=== PATIENT | male | born 1950 | race African-American/Black ===

== ENCOUNTER 2022-03-26 12:44 | Inpatient (IN) | payer MEDICARE, OTHER ==
[~2022-03-26] VITALS: Ht 165.1 cm; Wt 80.3 kg
[2022-03-26] MEDS ORDERED: AMLO-213 PO (12:59)
[2022-03-26] MEDS ORDERED: NA P133E RC (12:59)
[2022-03-26] MEDS ORDERED: CALC1TAB30 PO (12:59)
[2022-03-26] MEDS ORDERED: SENN-261 PO (12:59)
[2022-03-26] MEDS ORDERED: LORA-259 PO (12:59)
[2022-03-26] MEDS ORDERED: TRAM50TA2 PO (12:59)
[2022-03-26] MEDS ORDERED: DIVA250T4 PO (12:59)
[2022-03-26] MEDS ORDERED: ACET-2605 PO (12:59)
[2022-03-26] MEDS ORDERED: MAGN400O6 PO (12:59)
[2022-03-26] MEDS ORDERED: DOCU-141 PO (12:59)
[2022-03-26] MEDS ORDERED: BENZ1TAB7 PO (12:59)
[2022-03-26] MEDS ORDERED: RISP0.2515 PO (12:59)
[2022-03-26] MEDS ORDERED: ACET-868 PO (12:59)
[2022-03-26] MEDS ORDERED: BISA10SU11 RC (12:59)
[2022-03-26] MEDS ORDERED: IV NS 0.9% 1,000 ML BAG IV ONE (13:00)
[2022-03-26] MEDS ORDERED: PIPERACILLIN /TAZOBACTAM 3.375 G in IV D5W 50 ML IV ONE (13:00)
[2022-03-26] MEDS ORDERED: ACETAMINOPHEN ES 500 MG TABLET PO ONE (13:00)
[2022-03-26] MEDS ORDERED: VANCOMYCIN 1 GM in IV D5W 250 ML IV ONE (13:00)
--- NOTE | 2022-03-26 13:04 | NUR ---
TECH AT BEDSIDE FOR EKG
--- NOTE | 2022-03-26 13:05 | NUR ---
MOVE SHEET SUBMITTED.
--- NOTE | 2022-03-26 13:05 | NUR ---
BIB [facility] FROM [facility] DUE TO FEVER AND O2SAT IN THE LOW 80'S ON ROOM AIR TACHY A/O X2 ABLE TO MAKE NEEDS KNOWN. IV LAC PRESENT ON ARRIVAL
--- NOTE | 2022-03-26 13:06 | NUR ---
PHLEB AT BEDSIDE FOR BLOOD DRAW
--- NOTE | 2022-03-26 13:06 | NUR ---
COVID SWAB COLLECTED AND SENT TO LAB
[2022-03-26] MEDS ORDERED: ACETAMINOPHEN ES 500 MG TABLET ONE (13:27)
[2022-03-26 13:54] LABS: BASOPHILS % (AUTO) 0.3 % (0.0-2.0); EOSINOPHILS % (AUTO) 0.2 % (0.0-6.0); HEMATOCRIT 41 % (39-51); HEMOGLOBIN 13.7 g/dL (13.5-17.5); LYMPHOCYTES # (AUTO) 0.7 K/uL (0.8-4.8); LYMPHOCYTES % (AUTO) 6.7 % (20.0-44.0); MEAN CORPUSCULAR HGB CONC 33 g/dl (31.0-36.0); MEAN CORPUSCULAR VOLUME 88 fL (80-96); MONOCYTES # (AUTO) 1.1 K/uL (0.1-1.30); MONOCYTES % (AUTO) 10.3 % (2.0-12.0); NEUTROPHILS # (AUTO) 8.7 K/uL (1.8-8.9); NEUTROPHILS % (AUTO) 82.5 % (43.0-81.0); PLATELET COUNT (AUTO) 209 K/uL (150-450); RED BLOOD CELL COUNT(AUTO) 4.68 MIL/uL (4.5-6.0); WHITE BLOOD COUNT (AUTO) 10.5 K/uL (4.3-11.0)
[2022-03-26 14:05] LABS: ALANINE AMINOTRANSFERASE 15 U/L (12-78); ALBUMIN 2.1 g/dL (3.4-5.0); ALKALINE PHOSPHATASE 84 U/L (46-116); ASPARTATE AMINOTRANSFERASE 28 U/L (15-37); BILIRUBIN,DIRECT 0.3 mg/dL (0.0-0.2); BILIRUBIN,TOTAL 0.6 mg/dL (0.2-1.0); CALCIUM, SERUM 10.5 mg/dL (8.5-10.1); CARBON DIOXIDE 30 mmol/L (21-32); CHLORIDE 102 mmol/L (98-107); CREATININE 1.2 mg/dL (0.6-1.3); GLUCOSE 164 mg/dL (74-106); POTASSIUM 4.2 mmol/L (3.5-5.1); SODIUM SERUM 140 mmol/L (136-145); TOTAL PROTEIN, SERUM 9.1 g/dL (6.4-8.2); UREA NITROGEN, BLOOD 22 mg/dL (7-18)
[2022-03-26] MEDS ORDERED: MAG HYDROX/AL HYDROX/SIMETH 30 ML UDC PO PRN (14:30)
[2022-03-26] MEDS ORDERED: MAGNESIUM HYDROXIDE 30 ML UDC PO PRN ×2 (14:30)
[2022-03-26] MEDS ORDERED: ONDANSETRON HCL/PF 4 MG/2 ML VIAL IVP PRN (14:30)
[2022-03-26] MEDS ORDERED: ZOLPIDEM TARTRATE 5 MG TABLET PO PRN (14:30)
[2022-03-26] MEDS ORDERED: BISACODYL SUPP (10 MG) 10 MG/SUPP.RECT SUPP.RECT RC PRN (14:30)
[2022-03-26] MEDS ORDERED: ACETAMINOPHEN ES 500 MG TABLET PO PRN (14:30)
[2022-03-26] MEDS ORDERED: Z GUARD REMEDY 4 OZ OINT TP PRN (14:30)
[2022-03-26] MEDS ORDERED: ACETAMINOPHEN 325 MG TABLET PO PRN (14:30)
[2022-03-26] MEDS ORDERED: NA PHOS,M-B/NA PHOS,DI-BA 1 EA ENEMA RC PRN (14:30)
--- NOTE | 2022-03-26 15:15 | NUR ---
APOLINAR, MECHANICAL UNIT REPAIRER WITH NEW ORDER FOR MIDLINE. PRIMARY RN AWARE AND ZOHRA, NURSING AUTOMOBILE BODY REPAIR SUPERVISOR MADE AWARE.
--- NOTE | 2022-03-26 15:38 | NUR ---
GOT BED 322-1
--- NOTE | 2022-03-26 16:10 | NUR ---
report given to gisele for IGNACIO
--- NOTE | 2022-03-26 17:05 | NUR ---
pt transferred to 322 via lalo cardoza protocol. warm handoff given to rn assigned.
[2022-03-26] MEDS: risperiDONE 0.25 MG TABLET PO SCH (17:42)
[2022-03-26] MEDS: DOCUSATE SODIUM 100 MG CAPSULE PO SCH (17:43)
[2022-03-26] MEDS: DIVALPROEX SODIUM 250 MG TABLET.DR PO SCH (17:43)
[2022-03-26] MEDS: BENZTROPINE MESYLATE (1 MG) 1 MG TABLET PO SCH (17:43)
[2022-03-26] MEDS: CALCIUM CARB 250MG /VITAMIN D 1 UDTAB PO SCH (17:43)
[2022-03-26 17:53] VITALS: BP 101/55
[2022-03-26] MEDS: PIPERACILLIN /TAZOBACTAM 3.375 G in IV D5W 50 ML IV SCH ×2 (17:55→23:19)
[2022-03-26] MEDS: IV NS 0.9% 1,000 ML IV PRN (17:56)
--- NOTE | 2022-03-26 18:00 | NUR ---
RN ADMITTING NOTES PATIENT ARRIVED TO UNIT VIA GURNEY @1700, ACCOMPANIED BY TWO ER STAFF. PATIENT ON 3L OF O2 VIA NC. NO S/S OF RESPIRATORY DISTRESS. PATIENT HAS THREE IV ACCESS: R UA #18 RUNNING NS @125 ML/HR, R FA #20 SL, AND L AC #18 SL. INTACT AND PATENT. PATIENT IS A/Ox1-2, ABLE TO MAKE NEEDS KNOWN. PATIENT IS INCONTINENT, USES DIAPER. ORIENTED TO ROOM, CALL LIGHT, AND STAFF. TELE MONITORING ATTACHED: SHOWING SR HR 75. FULL BODY ASSESSMENT COMPLETED: CARDIAC WNL, RESPIRATORY L LOWER LOBE DIMINISHED, GI/ WNL, SKIN: SACRAL SCARING, ABDOMINAL SCARRING, L LEG SCARRING. SAFETY MEASURES IN PLACE: CALL LIGHT WITHIN REACH, HOB ELEVATED, SIDE RAILS UPx 2, BED LOCKED AND IN LOWEST POSITION, BED ALARM ON. WILL CONTINUE TO MONITOR.
--- NOTE | 2022-03-26 19:45 | NUR ---
RN NOTES CONTINUING CARE INTO SUPERVISOR WATERPROOFING
[2022-03-26 20:00] VITALS: BP 77/49
[2022-03-26] MEDS: LORAZEPAM 1 MG TABLET PO SCH (21:12)
[2022-03-26] MEDS: SENNOSIDES 8.6 MG TABLET PO SCH (21:12)
[2022-03-27] VITALS: BP_SYST 100; BP_SYST 99; BP_DIAS 73; BP_DIAS 78
[2022-03-27] MEDS: VANCOMYCIN 0.75 GM in IV D5W 250 ML IV SCH ×2 (01:45→14:17)
[2022-03-27] MEDS: IV NS 0.9% 1,000 ML IV PRN ×3 (03:38→17:10)
[2022-03-27 04:00] VITALS: BP 143/82
[2022-03-27] MEDS: PIPERACILLIN /TAZOBACTAM 3.375 G in IV D5W 50 ML IV SCH ×3 (05:01→18:19)
--- NOTE | 2022-03-27 06:52 | NUR ---
TRIAL LAWYER CLOSING NOTES PATIENT LYING IN BED, AWAKE AOx2, ABLE TO MAKE NEEDS KNOWN. ON NC 3LPM AND TOLERATING WELL. NO SOB NOTED. NO S/SX OF RESPIRATORY DISTRESS NOTED. TELE MONITOR SHOWING SINUS MERON/SINUS RHYTHM HR 55. IV ACCESS IN L AC#18 SL, R FA#20 SL, R UA#18 RUNNING NS @125 ML/HR. IV IS INTACT, PATENT, AND FLUSHING WELL. SAFETY PRECAUTIONS IN PLACE: BED IN LOWEST, LOCKED POSITION, SIDE RAILS UPx2, AND BRAKES ON. TABLE AND CALL LIGHT WITHIN REACH. WILL ENDORSE TO NEXT SHIFT ANY IGNACIO.
--- NOTE | 2022-03-27 07:35 | NUR ---
BUSINESS PROJECT MANAGER OPENING NOTES RECEIVED PT LYING IN BED, AWAKE AOx1-2, EPISODES OF CONFUSION, ABLE TO MAKE NEEDS KNOWN. ON NC 3LPM AND TOLERATING WELL AT 97%. NO SOB NOTED, BREATHING EVEN AND UNLABORED. NO S/SX OF RESPIRATORY DISTRESS NOTED. TELE MONITOR SHOWING SINUS MERON/SINUS RHYTHM AT 50 BPM. IV ACCESSES NOTED IN LAC G#18 (SL), RFA G#20 (SL), ARISTEO G#18 RUNNING NS @125 ML/HR. ALL IV ACCESSES INTACT, PATENT, AND FLUSHING WELL. SAFETY PRECAUTIONS IN PLACE: BED IN LOWEST, LOCKED POSITION, SIDE RAILS UPx3, AND BRAKES ON, TRAY TABLE AND CALL LIGHT WITHIN REACH. WILL CONTINUE TO MONITOR DURING MY SHIFT.
[2022-03-27 07:50] LABS: BASOPHILS % (AUTO) 0.3 % (0.0-2.0); EOSINOPHILS % (AUTO) 3.1 % (0.0-6.0); HEMATOCRIT 35 % (39-51); HEMOGLOBIN 11.4 g/dL (13.5-17.5); LYMPHOCYTES # (AUTO) 1.6 K/uL (0.8-4.8); LYMPHOCYTES % (AUTO) 22.3 % (20.0-44.0); MEAN CORPUSCULAR HGB CONC 32 g/dl (31.0-36.0); MEAN CORPUSCULAR VOLUME 88 fL (80-96); MONOCYTES # (AUTO) 1.1 K/uL (0.1-1.30); NEUTROPHILS # (AUTO) 4.3 K/uL (1.8-8.9); NEUTROPHILS % (AUTO) 59.3 % (43.0-81.0); PLATELET COUNT (AUTO) 155 K/uL (150-450); RED BLOOD CELL COUNT(AUTO) 3.99 MIL/uL (4.5-6.0); WHITE BLOOD COUNT (AUTO) 7.3 K/uL (4.3-11.0)
[2022-03-27 08:01] LABS: CARBON DIOXIDE 27 mmol/L (21-32); CHLORIDE 105 mmol/L (98-107); CREATININE 0.8 mg/dL (0.6-1.3); GLUCOSE 100 mg/dL (74-106); PHOSPHORUS 3.5 mg/dL (2.5-4.9); POTASSIUM 3.8 mmol/L (3.5-5.1); SODIUM SERUM 140 mmol/L (136-145); UREA NITROGEN, BLOOD 18 mg/dL (7-18)
[2022-03-27] MEDS: LORAZEPAM 1 MG TABLET PO SCH ×2 (08:33→21:54)
[2022-03-27] MEDS: DIVALPROEX SODIUM 250 MG TABLET.DR PO SCH ×2 (08:33→17:33)
[2022-03-27] MEDS: risperiDONE 0.25 MG TABLET PO SCH ×2 (08:33→17:44)
[2022-03-27] MEDS: BENZTROPINE MESYLATE (1 MG) 1 MG TABLET PO SCH ×2 (08:33→17:34)
[2022-03-27] MEDS: DOCUSATE SODIUM 100 MG CAPSULE PO SCH ×2 (08:34→17:33)
[2022-03-27] MEDS: CALCIUM CARB 250MG /VITAMIN D 1 UDTAB PO SCH (08:34)
[2022-03-27] MEDS ORDERED: AMLODIPINE BESYLATE 10 MG TABLET PO SCH (09:00)
[2022-03-27] MEDS ORDERED: MIDODRINE HCL (5MG) 5 MG TABLET PO PRN (11:00)
[2022-03-27] MEDS ORDERED: IOHEXOL-300 100 ML VIAL IV ONE (11:13)
[2022-03-27] MEDS ORDERED: IV NS 0.9% 250 ML IV ONE (11:13)
--- NOTE | 2022-03-27 11:50 | NUR ---
RN NOTES - PT IS BACK FROM CT
--- NOTE | 2022-03-27 13:20 | NUR ---
RN NOTES - LAB RESULTS LAB CALLED TO REPORT GRAM POSITIVE COCCI IN CHAINS SEEN ON GRAM STAIN AEROBIC - MD MADE AWARE.
[2022-03-27] MEDS ORDERED: LORAZEPAM INJ 2 MG/ML VIAL IV PRN (15:00)
[2022-03-27] MEDS ORDERED: Z GUARD REMEDY 4 OZ OINT TP SCH (15:30)
[2022-03-27 15:49] LABS: D-DIMER 8.63 mg/L(FEU (0.17-0.50)
--- NOTE | 2022-03-27 16:30 | NUR ---
RN NOTES DR LIN HAS BEEN MADE AWARE THAT THE PT REGISTERED WITH HR OF OVER 130S, MD ORDERED EKG STAT- RESULTED ATRIAL FLUTTER, ORDERED AMIODARONE BOLUS AND DRIP, [facility] HAS BEEN NOTIFIED FOR A TRANSFER. RECOMMENDED CARDIO CONSULT -DR LANZA MADE AWARE.
--- NOTE | 2022-03-27 16:55 | NUR ---
RN NOTES TRANSFERRED PATIENT TO [facility] AND WAS RECEIVED BY TYLER ORNELAS. PATIENT WAS SAFELY TRANSFERRED VIA HIS OWN BED, ON 3LPM VIA NC, TELEMONITORING REPORTS SR 130S BPM, EKG SHOWS ATRIAL FLUTTER. CALLED THE PHARMACY TO SEND AMIODARONE TO THE [facility]. ALL BELONGINGS CHART, AND MEDICATIONS ENDORSED. MD AND CHARGE NURSE AWARE OF THE TRANSFER.
[2022-03-27] MEDS ORDERED: AMIODARONE 150 MG in IV D5W 100 ML IV ONE (17:00)
[2022-03-27] MEDS ORDERED: AMIODARONE 450 MG in IV D5W 241 ML IV PRN (17:00)
--- NOTE | 2022-03-27 17:00 | NUR ---
james rn note received patient from from med/surg with dx sepsis and a flutter on tele monitor patient alert with confusion,unable to answer any questions, on 3 l nac of o2 saturation 97%, placed on tele monitor st \aflutter hr 145 , at this time, lt ac hl and rt upper arm [place] [id number] at this time i, Tylenol po given coolimg measure provided , bed in lowest and locked position. call light within reach with safety measures implemented. All needs were attended for the moment., on ivf as ordered , will monitor Contacted pharmacy for the antibiotic
[2022-03-27] MEDS: ACETAMINOPHEN 325 MG TABLET PO PRN (17:02)
[2022-03-27 17:06] LABS: THYROID STIMULATING HORMONE 2.432 uIU/mL (0.358-3.74)
--- NOTE | 2022-03-27 19:27 | NUR ---
[facility] RN NOTE VENOUS DOPPLEX DONE NEGATIVE FOR DVT PER TECH , AND LEFT A MESSAGE TO ELDA FAMILY MEMBER TO GET CONSENT FOR MRI AND CT SCAN WILL ENDORSE TO RN NEXT SHIFT SINGH
[2022-03-27 20:00] VITALS: BP 94/54
[2022-03-27] MEDS: SENNOSIDES 8.6 MG TABLET PO SCH (21:53)
--- NOTE | 2022-03-27 22:52 | NUR ---
RN NOTES: PT IS ON AMIO DRIP. HR CONVERTED TO SINUS RHYTHM TO SINUS MERON [address] ROBBINS. ORDER TO STOP THE AMIO DRIP. NOTED AND CARRIED OUT.
[2022-03-28] VITALS: BP 99/73
[2022-03-28] MEDS: PIPERACILLIN /TAZOBACTAM 3.375 G in IV D5W 50 ML IV SCH ×4 (00:19→17:35)
[2022-03-28] MEDS: VANCOMYCIN 0.75 GM in IV D5W 250 ML IV SCH (01:06)
[2022-03-28] MEDS: IV NS 0.9% 1,000 ML IV PRN (03:42)
[2022-03-28 04:00] VITALS: BP 97/61
--- NOTE | 2022-03-28 04:37 | NUR ---
RN NOTES: CALLED DAUGHTER ELDA TO OBTAIN CONSENT FOR MRI AND CT SCAN. DIDN'T ANSWER. LEFT MESSAGE.
--- NOTE | 2022-03-28 06:30 | NUR ---
RN CLOSING NOTES: PT IN BED, SLEEPING BUT EASILY AROUSABLE, ALERT/ORIENTED X2 AND VERBALLY RESPONSIVE WITH CONFUSION. ON O2 AT 3L/MIN VIA N/C AND PT TOLERATED WELL. O2 SAT 99%. IV ACCESSES ON LAC#18 G, RFA#20G, ARISTEO#18G INTACT AND PATENT. NO S/S OF INFILTRATIONS. RUNNING NS AT 125CC/HR. NO C/O PAIN OR DISCOMFORT. NO ACUTE DISTRESS. PT REMAIN NPO AFTER MIDNIGHT FOR MRI AND CT SCAN W/ CONTRAST. ALL DUE MEDS GIVEN ORDERED. SAFETY MEASURES IN PLACE. SIDE RAILS UP X3, BED IN LOWEST POSITION AND LOCKED. PLACE CALL LIGHT WITH IN REACH. WILL ENDORSE TO MORNING SHIFT NURSE.
[2022-03-28 07:09] LABS: ALANINE AMINOTRANSFERASE 8 U/L (12-78); ALBUMIN 1.6 g/dL (3.4-5.0); ALKALINE PHOSPHATASE 64 U/L (46-116); ASPARTATE AMINOTRANSFERASE 21 U/L (15-37); BILIRUBIN,TOTAL 0.5 mg/dL (0.2-1.0); CALCIUM, SERUM 8.9 mg/dL (8.5-10.1); CARBON DIOXIDE 30 mmol/L (21-32); CHLORIDE 106 mmol/L (98-107); CREATININE 0.9 mg/dL (0.6-1.3); GLUCOSE 104 mg/dL (74-106); POTASSIUM 3.8 mmol/L (3.5-5.1); SODIUM SERUM 137 mmol/L (136-145); UREA NITROGEN, BLOOD 12 mg/dL (7-18)
[2022-03-28 08:00] VITALS: BP 119/85
--- NOTE | 2022-03-28 08:02 | NUR ---
RN OPEN NOTES: PT IN BED, SLEEPING , ALERT/ORIENTED X2 AND VERBALLY RESPONSIVE OCCASIONALLY CONFUSION. ON O2 AT 3L/MIN VIA N/C AND PT TOLERATED WELL. O2 SAT 99%. IV ACCESSES ON LAC#18 G, RFA#20G, ARISTEO#18G INTACT AND PATENT. NO S/S OF INFILTRATIONS. RUNNING NS AT 125CC/HR. NO C/O PAIN OR DISCOMFORT. NO ACUTE DISTRESS. SAFETY MEASURES IN PLACE. SIDE RAILS UP X3, BED IN LOWEST POSITION AND LOCKED. PLACE CALL LIGHT WITH IN REACH. WILL CONTINUE TO MONITOR AND FALLOW POC
[2022-03-28] MEDS: LORAZEPAM 1 MG TABLET PO SCH ×2 (08:45→22:54)
[2022-03-28] MEDS: BENZTROPINE MESYLATE (1 MG) 1 MG TABLET PO SCH ×2 (08:45→17:11)
[2022-03-28] MEDS: risperiDONE 0.25 MG TABLET PO SCH ×2 (08:45→17:11)
[2022-03-28] MEDS: DOCUSATE SODIUM 100 MG CAPSULE PO SCH ×2 (08:45→17:11)
[2022-03-28] MEDS: DIVALPROEX SODIUM 250 MG TABLET.DR PO SCH ×2 (08:46→17:11)
[2022-03-28 11:07] LABS: *SPE A/G RATIO 0.4 (0.7-1.7); *SPE ALPHA-1-GLOBULIN 0.4 g/dL (0.0-0.4); *SPE ALPHA-2-GLOBULIN 0.9 g/dL (0.4-1.0); *SPE BETA GLOBULIN 1.1 g/dL (0.7-1.3); *SPE M-SPIKE Not Observed g/dL (Not Observed); IMMUNOGLOBULIN A, SERUM 350 mg/dL (61-437); IMMUNOGLOBULIN G, SERUM 2782 mg/dL (603-1613); IMMUNOGLOBULIN M, SERUM 233 mg/dL (15-143)
[2022-03-28 12:20] VITALS: BP 90/63
[2022-03-28] MEDS: VANCOMYCIN 1 GM in IV D5W 250ml IV SCH (15:03)
[2022-03-28] MEDS ORDERED: IV NS 0.9% 250 ML IV ONE (15:21)
[2022-03-28] MEDS ORDERED: IOHEXOL-350 100 ML VIAL IV ONE (15:21)
--- NOTE | 2022-03-28 15:32 | NUR ---
RN NOTE PATIENT WAS TAKEN TO THE CTB SCAN OF THE CHEST AND abdomen
[2022-03-28 17:01] VITALS: BP 110/64
--- NOTE | 2022-03-28 19:00 | NUR ---
RN CLOSING NOTES: PT IN BED, ALERT/ORIENTED X2 AND VERBALLY RESPONSIVE WITH CONFUSION. ON O2 AT 5L/MIN VIA N/C AND PT TOLERATED WELL. O2 SAT 99%. IV ACCESSES ON LAC#18 G, RFA#20G, ARISTEO#18G INTACT AND PATENT. NO S/S OF INFILTRATIONS. NO C/O PAIN OR DISCOMFORT. NO ACUTE DISTRESS. PT WILL BE NPO AFTER MIDNIGHT FOR MRI W/ CONTRAST. ALL DUE MEDS GIVEN ORDERED. SAFETY MEASURES IN PLACE. SIDE RAILS UP X3, BED IN LOWEST POSITION AND LOCKED. PLACE CALL LIGHT WITH IN REACH. WILL ENDORSE TO MORNING SHIFT NURSE.
[2022-03-28 20:00] VITALS: BP 110/58
[2022-03-28] MEDS: SENNOSIDES 8.6 MG TABLET PO SCH (22:55)
[2022-03-29] VITALS: BP 118/84
[2022-03-29] MEDS: ACETAMINOPHEN 325 MG TABLET PO PRN (01:44)
[2022-03-29] MEDS: PIPERACILLIN /TAZOBACTAM 3.375 G in IV D5W 50 ML IV SCH ×4 (01:45→18:41)
[2022-03-29 04:00] VITALS: BP 98/63
[2022-03-29] MEDS: VANCOMYCIN 1 GM in IV D5W 250ml IV SCH (04:31)
--- NOTE | 2022-03-29 06:58 | NUR ---
SQL SERVER BI DEVELOPER CLOSING NOTE PT REMAINS IN BED, AWAKE, A&O X1, CALM, COOPERATIVE. PT ON 4L NC WITH O2SAT RANGING FROM 94%-100%; NO S/S OF RESP DISTRESS, NO SOB OR COUGH, NON-LABORED AND EQUAL BREATHING. PT ATTACHED TO EXTERNAL MONITOR SB-SR WITH HR RANGING FROM 57-76. IV ACCESS ,ON LAC 18G, RFA 20G, AND ARISTEO 18G; INTACT AND PATENT; NS TKO A 10 ML/HR. ALL DUE MEDS ADMINISTERED DURING THE NIGHT. BED IN LOWEST POSITION, CALL LIGHT WITHIN REACH, SIDE RAILS UP X3. WILL ENDORSE TO DAYSHIFT NURSE TO CONTINUE CARE.
[2022-03-29 07:19] LABS: CALCIUM, SERUM 9.1 mg/dL (8.5-10.1); CREATININE 0.9 mg/dL (0.6-1.3); POTASSIUM 3.6 mmol/L (3.5-5.1)
[2022-03-29 08:00] VITALS: BP 95/67
--- NOTE | 2022-03-29 08:14 | NUR ---
RN NOTE PT RECEIVED ASLEEP IN BED, RESPONSIVE TO STIMULI. RECEIVING O2 @ 4L VIA NASAL CANULA. PT IN NPO EXCEPT MEDS. WITH IV ACCESS ON LAC G18, RFA G20, ARISTEO G18. SAFETY MEASURES FOLLOWED. WILL CONTINUE TO MONITOR.
[2022-03-29] MEDS: BENZTROPINE MESYLATE (1 MG) 1 MG TABLET PO SCH ×2 (08:26→16:13)
[2022-03-29] MEDS: LORAZEPAM 1 MG TABLET PO SCH ×2 (08:26→21:16)
[2022-03-29] MEDS: DIVALPROEX SODIUM 250 MG TABLET.DR PO SCH (08:26)
[2022-03-29] MEDS: DOCUSATE SODIUM 100 MG CAPSULE PO SCH ×2 (08:26→16:14)
[2022-03-29] MEDS: risperiDONE 0.25 MG TABLET PO SCH ×2 (08:26→16:14)
--- NOTE | 2022-03-29 10:20 | NUR ---
Responsible Republican: KHAI called [facility] [phone] where pt. resides and spoke to Adela SCOTT regarding responsible republican for pt., per Adela the only point of contact/NEXT OF KIN they have is the pt.'s sister, Adela Freitas [phone]. Per Adela the pt. has always been alert & Oriented and made his own medical decisions. Per Adela, the pt. has no children or spouse and they notified Christelle that pt. was transferred to [facility]. KHAI called Adela x 2 separate times and left a voicemail. KHAI will continue efforts to contact Christelle and clarify relationship. KHAI notified the pt.'s RNHerve.
[2022-03-29 12:00] VITALS: BP 98/62
--- NOTE | 2022-03-29 12:45 | NUR ---
RN NOTE SPOKE WITH MRI STAFF, PT DOES NOT NEED TO BE NPO FOR PROCEDURE. PMD MADE AWARE, T.O RESUME DIET.
--- NOTE | 2022-03-29 14:21 | NUR ---
RN NOTE PT TAKEN TO MRI. IN STABLE CONDITION. NOT IN RESPI DISTRESS. WITH O2 ON @4L VIA NC.
[2022-03-29 16:00] VITALS: BP 91/56
[2022-03-29] MEDS: DIVALPROEX SODIUM 125 MG CAP.SPRINK PO SCH (16:13)
--- NOTE | 2022-03-29 19:12 | NUR ---
RN NOTE PT RECEIVED ASLEEP IN BED, RESPONSIVE TO STIMULI. RECEIVING O2 @ 4L VIA NASAL CANULA. PT IN NPO EXCEPT MEDS POST MIDNIGHT FOR CT BIOPSY NEEDLE IN AM. WITH IV ACCESS ON RAC G20 IN PLACE AND PATENT,DUE MEDICATIONS GIVEN. AM/PM CARE RENDERED. SAFETY MEASURES FOLLOWED. WILL CONTINUE TO MONITOR.
--- NOTE | 2022-03-29 19:30 | NUR ---
PT SITTING IN BED, AWAKE EATING DINNER, ALERT/ORIENTED X2 AND VERBALLY RESPONSIVE OCCASIONALLY CONFUSED. ON O2 AT 4L/MIN VIA N/C AND PT TOLERATING WELL. IV ACCESS ON RAC G#20. NO C/O PAIN OR DISCOMFORT. NOT IN ACUTE DISTRESS. SAFETY MEASURES IN PLACE. SIDE RAILS UP X3, BED LOCKED AND IN LOWEST POSITION. PLACED CALL LIGHT WITH IN REACH. BED ALARM ON, WILL CONTINUE TO MONITOR AND FOLLOW PLAN OF CARE.
[2022-03-29 20:00] VITALS: BP 110/63
[2022-03-29] MEDS: SENNOSIDES 8.6 MG TABLET PO SCH (21:16)
[2022-03-29] MEDS: CEFTRIAXONE 2 G in IV D5W 100 ML IV SCH (21:17)
[2022-03-30] VITALS (7 sets, daily range): BP systolic 90–124; BP diastolic 56–74
--- NOTE | 2022-03-30 07:02 | NUR ---
PT ASLEEP IN BED, ALERT/ORIENTED X2 AND VERBALLY RESPONSIVE OCCASIONALLY CONFUSED. ON O2 AT 4L/MIN VIA N/C AND PT TOLERATING WELL. IV ACCESS ON RAC G#20. NO C/O PAIN OR DISCOMFORT. NOT IN ACUTE DISTRESS. SAFETY MEASURES IN PLACE. SIDE RAILS UP X3, BED LOCKED AND IN LOWEST POSITION. PLACED CALL LIGHT WITH IN REACH. BED ALARM ON, WILL ENDORSE TO NEXT NURSE ON DUTY FOR CONTINUITY OF CARE.
[2022-03-30 07:11] LABS: CALCIUM, SERUM 9.1 mg/dL (8.5-10.1); CREATININE 0.8 mg/dL (0.6-1.3); POTASSIUM 3.8 mmol/L (3.5-5.1)
[2022-03-30] MEDS ORDERED: MIDODRINE HCL (5MG) 5 MG TABLET PO PRN (08:00)
--- NOTE | 2022-03-30 08:00 | NUR ---
RN NOTES RECEIVED PATIENT IN THE BED A/O X2, TOTAL CARE, REFUSED PAIN. PATIENT ON O2-4LNC NO ACUTE RESPIRATORY DISTRESS. PATIENT ORTHOTICS PROSTHETICS ASSISTANT AND SCHEDULED CT GUIDED LUNG BIOPSY TIODAY, ACLLED SISTER, AND UNABLE TO REACH, LEFT MASSAGE.
--- NOTE | 2022-03-30 10:00 | NUR ---
RN NOTES' GET CALL FROM RADIOLOGISTS RENE HANNA, AND NOTIFIED TODAY UNABLE TO BE DONE CT GUIDED BIOPSY, BECAUSE NO PATHOLOGY ON SATURDAY, WILL BE RESCHEDULED DURING A WEEK. NOTIFIED Dr WATSON.
[2022-03-30] MEDS: DIVALPROEX SODIUM 125 MG CAP.SPRINK PO SCH ×2 (10:44→17:36)
[2022-03-30] MEDS: risperiDONE 0.25 MG TABLET PO SCH ×2 (10:44→17:36)
[2022-03-30] MEDS: BENZTROPINE MESYLATE (1 MG) 1 MG TABLET PO SCH ×2 (10:44→17:36)
[2022-03-30] MEDS: LORAZEPAM 1 MG TABLET PO SCH ×2 (10:45→21:32)
[2022-03-30] MEDS: DOCUSATE SODIUM 100 MG CAPSULE PO SCH ×2 (10:45→17:36)
[2022-03-30] MEDS ORDERED: GADOTERATE MEGLUMINE 5 MMOL/10 ML VIAL IV ONE (12:07)
--- NOTE | 2022-03-30 13:00 | NUR ---
RN NOTES PATIENT TOLERATED LUNCH 100% WITH ASSIST, DUE MEDICATION ADMINISTERED, REFUSED PAIN.
--- NOTE | 2022-03-30 15:08 | NUR ---
PATHOLOGY WAS NOT AVAILABLE, BIOPSIES NEED TO BE DONE BEFORE 12P / PATHOLOGY. SO SPECIMEN DOESNT SIT OVER WEEKEND
--- NOTE | 2022-03-30 18:30 | NUR ---
RN NOTES PM CARE DONE, PATIENT AWAKE, NO ACUTE RESPIRATORY DISTRESS, DUE MEDICATION ADMINISTERED, ASSIST TURN AND REPOSTION Q 2 HR. ENDORSED ONCOMING NURSE ABOUT CT GUIDED KELVIN BIOPSY TO FOLLOW UP, AND GET CONSENT FORM SIGN VIA PATIENTS SISTER.
--- NOTE | 2022-03-30 19:05 | NUR ---
RN NOTES RECEIVED PT FOR CONTINUITY OF CARE. PATIENT A/OX1-2 IN NO S/SX OF ACUTE DISTRESS AT THIS TIME; CURRENTLY ON 4L OF O2 VIA NC; WITH 02 SAT >95% AT THIS TIME.WITH IV ACCESS ON R AC#20. PATENT, INTACT AND FLUSHING WELL. . ON PUREED DIET. WILL ENSURE SAFETY MEASURES WITHIN THE SHIFT. PATIENT BED ALARM IS ON. HEAD OF BED ELEVATED. BED IS LOCKED, IN LOWEST POSITION AND SIDE RAILS UP. CALL LIGHT WITHIN REACH OF THE PATIENT. WILL CONTINUE TO MONITOR AND REASSESS FOR ANY CHANGES AND WILL CARRY OUT ANY ONGOING AND ACTIVE MD ORDER.
[2022-03-30] MEDS: SENNOSIDES 8.6 MG TABLET PO SCH (21:32)
[2022-03-30] MEDS: CEFTRIAXONE 2 G in IV D5W 100 ML IV SCH (21:32)
[2022-03-31] VITALS: BP 99/76
[2022-03-31 04:00] VITALS: BP 112/56
--- NOTE | 2022-03-31 04:00 | NUR ---
RN NOTES PATIENT REMAINED TO BE IN NO SIGNS OF ACUTE RESPIRATORY DISTRESS ,SAFE ENVIRONMENT MAINTAINED FOR PT. AM PATIENT CARE ASSISTANCE RENDERED. WILL CONTINUE TO MONITOR AND REASSESS FOR ANY CHANGES THROUGHOUT THE SHIFT.
--- NOTE | 2022-03-31 05:41 | NUR ---
RN NOTES CALLED PT'S SISTER (ELDA MORENO @[phone]) TO SECURE CONSENT FOR CT guided needle biopsy, ROUTED TO , REQUESTED FOR CALLBACK. STORAGE CENTER MANAGER MADE AWARE.
--- NOTE | 2022-03-31 06:26 | NUR ---
RN CLOSING NOTE: PATIENT REMAINS IN ROOM IN NO SIGNS OF RESPIRATORY DISTRESS, PATIENT NOW ON 2L OF O2 VIA NC ;TOLERATING WELL SATURATING @ >95% SP02. SR ON MONITOR. SAFETY MEASURES IMPLEMENTED, BED IN LOWEST POSITION, LOCKED, SIDE RAILS UP, CALL LIGHT WITHIN REACH. ALL NEEDS AND ORDERS ADDRESSED DURING THE SHIFT. IV ACCESS MAINTAINED INTACT, SECURED AND FLUSHING WELL. ALL DUE MEDS GIVEN ORDERED & SCHEDULED ; PATIENT TOLERATED WELL. PATIENT KEPT CLEAN AND COMFORTABLE WITHIN THE SHIFT. STILL NEED TO OBTAINED CONSENT FOR CT GUIDED BIOPSY; WILL ENDORSE FOR FOLLOW THROUGH. PATIENT ENDORSED TO INCOMING SHIFT RN WITH STABLE VITAL SIGN AND FOR CONTINUITY OF CARE. Addendum: 03/31/22 at 0720 by JOSE SCHMITT RN PT A/OX1-2; CONFUSED.
[2022-03-31 07:26] LABS: BASOPHILS % (AUTO) 0.4 % (0.0-2.0); EOSINOPHILS % (AUTO) 1.9 % (0.0-6.0); HEMATOCRIT 35 % (39-51); HEMOGLOBIN 11.3 g/dL (13.5-17.5); LYMPHOCYTES # (AUTO) 2.5 K/uL (0.8-4.8); LYMPHOCYTES % (AUTO) 23.7 % (20.0-44.0); MEAN CORPUSCULAR HGB CONC 33 g/dl (31.0-36.0); MEAN CORPUSCULAR VOLUME 88 fL (80-96); MONOCYTES # (AUTO) 1.8 K/uL (0.1-1.30); NEUTROPHILS # (AUTO) 6.1 K/uL (1.8-8.9); PLATELET COUNT (AUTO) 179 K/uL (150-450); RED BLOOD CELL COUNT(AUTO) 3.94 MIL/uL (4.5-6.0); WHITE BLOOD COUNT (AUTO) 10.6 K/uL (4.3-11.0)
[2022-03-31 07:29] LABS: CALCIUM, SERUM 9.9 mg/dL (8.5-10.1); CREATININE 0.9 mg/dL (0.6-1.3); POTASSIUM 3.6 mmol/L (3.5-5.1)
--- NOTE | 2022-03-31 07:30 | NUR ---
RN OPENING NOTE RCVD PT ASLEEP IN BED, ALERT/ORIENTED X1-2 AND VERBALLY RESPONSIVE OCCASIONALLY CONFUSED. ON O2 AT 4L/MIN VIA N/C AND PT TOLERATING WELL. IV ACCESS ON RAC G#20. NO C/O PAIN OR DISCOMFORT. NOT IN ACUTE DISTRESS. SAFETY MEASURES IN PLACE. SIDE RAILS UP X3, BED LOCKED AND IN LOWEST POSITION. PLACED CALL LIGHT WITH IN REACH. BED ALARM ON, WILL ENDORSE TO NEXT NURSE ON DUTY FOR CONTINUITY OF CARE.
[2022-03-31 08:00] VITALS: BP 103/66
[2022-03-31] MEDS: BENZTROPINE MESYLATE (1 MG) 1 MG TABLET PO SCH ×2 (09:30→17:18)
[2022-03-31] MEDS: DOCUSATE SODIUM 100 MG CAPSULE PO SCH ×2 (09:30→17:18)
--- NOTE | 2022-03-31 09:30 | NUR ---
RN NOTES DUE MEDS GIVEN
[2022-03-31] MEDS: LORAZEPAM 1 MG TABLET PO SCH ×2 (09:31→21:10)
[2022-03-31] MEDS: risperiDONE 0.25 MG TABLET PO SCH ×2 (09:31→17:18)
[2022-03-31] MEDS: DIVALPROEX SODIUM 125 MG CAP.SPRINK PO SCH ×2 (09:31→17:18)
[2022-03-31 12:00] VITALS: BP 88/45
[2022-03-31 12:05] LABS: BAND % (MANUAL) 3 % (0.0-5.0); EOSINOPHILS % (MANUAL) 3 % (0-4); LYMPHOCYTES % (MANUAL) 30 % (16-48); MONOCYTES % (MANUAL) 9 % (0-11.0); NEUTROPHILS % (MANUAL) 55 (42-76)
--- NOTE | 2022-03-31 15:41 | NUR ---
RN NOTES DR. SAMUEL AWARE, PATIENT FOR CT GUIDED LUNG BIOPSY BUT CONSENTS ARE NOT SIGNED AND PER DAUGHTER ELDA, REFUSE THE PROCEDURE. DR. SAMUEL WILL CALL HER TODAY
[2022-03-31 16:00] VITALS: BP 94/59
--- NOTE | 2022-03-31 18:38 | NUR ---
FOREST BIOMETRICS PROFESSOR CLOSING NOTE PT ASLEEP IN BED, ALERT/ORIENTED X1-2 AND VERBALLY RESPONSIVE OCCASIONALLY CONFUSED. ON O2 AT 4L/MIN VIA N/C AND PT TOLERATING WELL. IV ACCESS ON RAC G#20. NO C/O PAIN OR DISCOMFORT. NOT IN ACUTE DISTRESS. CONDOM CATH IN PLACE. 1100 ML OUTPUT. SAFETY MEASURES IN PLACE. SIDE RAILS UP X3, BED LOCKED AND IN LOWEST POSITION. PLACED CALL LIGHT WITH IN REACH. BED ALARM ON, ALL NEEDS MET AT HIS TIME. PM CARE AND PRESCRIBED WOUND TREATMENT DONE EARLIER. BED LOW LOCKED WILL ENDORSE TO NEXT NURSE ON DUTY FOR CONTINUITY OF CARE.
--- NOTE | 2022-03-31 19:20 | NUR ---
RN NOTES RECEIVED PT FOR CONTINUITY OF CARE. PATIENT A/OX1-2, CONFUSED IN NO S/SX OF ACUTE DISTRESS AT THIS TIME; CURRENTLY ON 2L OF O2 VIA NC; WITH 02 SAT >95% AT THIS TIME.WITH IV ACCESS ON R AC#20. PATENT, INTACT AND FLUSHING WELL. . ON PUREED DIET. WILL ENSURE SAFETY MEASURES WITHIN THE SHIFT. PATIENT BED ALARM IS ON. HEAD OF BED ELEVATED. BED IS LOCKED, IN LOWEST POSITION AND SIDE RAILS UP. CALL LIGHT WITHIN REACH OF THE PATIENT. WILL CONTINUE TO MONITOR AND REASSESS FOR ANY CHANGES AND WILL CARRY OUT ANY ONGOING AND ACTIVE MD ORDER.
[2022-03-31 20:00] VITALS: BP 91/55
[2022-03-31] MEDS: CEFTRIAXONE 2 G in IV D5W 100 ML IV SCH (21:10)
[2022-03-31] MEDS: SENNOSIDES 8.6 MG TABLET PO SCH (21:11)
[2022-04-01] VITALS: BP 126/63
[2022-04-01 04:00] VITALS: BP 112/78
--- NOTE | 2022-04-01 06:30 | NUR ---
RN NOTES CALLED PT'S SISTER (ELDA MORENO @[phone]) TO SECURE CONSENT FOR CT GUIDED NEEDLE BIOPSY ROUTED TO , REQUESTED FOR CALLBACK. CATALYST OPERATOR GASOLINE MADE AWARE.
--- NOTE | 2022-04-01 06:49 | NUR ---
RN CLOSING NOTE: PATIENT REMAINS IN ROOM IN NO SIGNS OF RESPIRATORY DISTRESS, PATIENT A/OX1-2; CONFUSED. ON 2L OF O2 VIA NC ;TOLERATING WELL SATURATING @ >95% SP02. SR ON MONITOR. SAFETY MEASURES IMPLEMENTED, BED IN LOWEST POSITION, LOCKED, SIDE RAILS UP, CALL LIGHT WITHIN REACH. ALL NEEDS AND ORDERS ADDRESSED DURING THE SHIFT. IV ACCESS MAINTAINED INTACT, SECURED AND FLUSHING WELL. ALL DUE MEDS GIVEN ORDERED & SCHEDULED ; PATIENT TOLERATED WELL. PATIENT KEPT CLEAN AND COMFORTABLE WITHIN THE SHIFT. STILL NEED TO OBTAINED CONSENT FOR CT GUIDED BIOPSY; WILL ENDORSE FOR FOLLOW THROUGH. PATIENT ENDORSED TO INCOMING SHIFT RN WITH STABLE VITAL SIGN AND FOR CONTINUITY OF CARE.
[2022-04-01 08:00] VITALS: BP 102/67
[2022-04-01] MEDS: DOCUSATE SODIUM 100 MG CAPSULE PO SCH ×2 (08:05→16:17)
[2022-04-01] MEDS: DIVALPROEX SODIUM 125 MG CAP.SPRINK PO SCH ×2 (08:06→16:17)
[2022-04-01] MEDS: risperiDONE 0.25 MG TABLET PO SCH ×2 (08:06→16:17)
[2022-04-01] MEDS: BENZTROPINE MESYLATE (1 MG) 1 MG TABLET PO SCH ×2 (08:06→16:17)
[2022-04-01] MEDS: LORAZEPAM 1 MG TABLET PO SCH ×2 (08:08→21:21)
--- NOTE | 2022-04-01 09:30 | NUR ---
RN NOTES DUE MEDS GIVEN
--- NOTE | 2022-04-01 14:10 | NUR ---
RN NOTES 2ND ATTEMPT TO CALL ELDA MORENO DTR - [phone]. NO ANSWER. MESSAGE LEFT.
[2022-04-01 16:00] VITALS: BP 99/57
--- NOTE | 2022-04-01 18:27 | NUR ---
AREA MECHANIC CLOSING NOTE PT ASLEEP IN BED, ALERT/ORIENTED X1-2 AND VERBALLY RESPONSIVE OCCASIONALLY CONFUSED. ON O2 AT 2L/MIN VIA N/C AND PT TOLERATING WELL. IV ACCESS ON RAC G#20. NO C/O PAIN OR DISCOMFORT. NOT IN ACUTE DISTRESS. CONDOM CATH IN PLACE. 500 ML OUTPUT. SAFETY MEASURES IN PLACE. SIDE RAILS UP X3, BED LOCKED AND IN LOWEST POSITION. PLACED CALL LIGHT WITH IN REACH. BED ALARM ON, ALL NEEDS MET AT HIS TIME. PM CARE AND PRESCRIBED WOUND TREATMENT DONE EARLIER. BED LOW LOCKED WILL ENDORSE TO NEXT NURSE ON DUTY FOR CONTINUITY OF CARE.
[2022-04-01 20:00] VITALS: BP 101/58
[2022-04-01] MEDS: SENNOSIDES 8.6 MG TABLET PO SCH (21:22)
[2022-04-01] MEDS: CEFTRIAXONE 2 G in IV D5W 100 ML IV SCH (21:24)
--- NOTE | 2022-04-01 21:55 | NUR ---
MS RN OPENING NOTE PT RECEIVED IN BED, AWAKE, A&O X2; CONFUSED. PT ON 2L NC WITH CURRENT O2SAT OF 100%; NO S/S OF RESP DISTRESS, NO SOB OR COUGH, NON-LABORED AND EQUAL BREATHING. VSS, WILL CONTINUE TO MONITOR NEEDED. CONDOM CATH INTACT AND PATENT, DRAINING URINE THAT IS ORANGE-YELLOW IN COLOR. IV ACCESS ON RAC 20G, INTACT AND PATENT, FLUSHES EASILY WITH NO RESISTANCE; NO MEDS/FLUIDS INFUSING THROUGH IT. BED IN LOWEST POSITION, CALL LIGHT WITHIN REACH, SIDE RAILS UP X3. WILL CONTINUE TO MONITOR THROUGHOUT THE NIGHT.
[2022-04-02 04:00] VITALS: BP 132/93
[2022-04-02] MEDS: ACETAMINOPHEN 325 MG TABLET PO PRN (05:40)
--- NOTE | 2022-04-02 05:41 | NUR ---
RN NOTE PT NOTED TO HAVE TEMPERATURE OF 99.9. PT ADMINISTERED TYLENOL 650 MG.
--- NOTE | 2022-04-02 07:01 | NUR ---
MS RN CLOSING NOTE PT REMAINS IN BED, AWAKE, A&O X2; CONFUSED. CONTINUES TO BE ON 2L NC WITH O2SAT RANGING FROM 99%- 100%; NO S/S OF RESP DISTRESS, NO SOB OR COUGH, NON-LABORED AND EQUAL BREATHING. NOTED TO HAVE TEMP OF 99.9 AT 0400; OTHERWISE ALL OTHER VSS. CONDOM CATH INTACT AND PATENT, DRAINING URINE THAT IS ORANGE-YELLOW IN COLOR. IV ACCESS ON RAC 20G, INTACT AND PATENT, FLUSHES EASILY WITH NO RESISTANCE; NO MEDS/FLUIDS INFUSING THROUGH IT. ALL DUE MEDS ADMINISTERED DURING THE NIGHT. BED IN LOWEST POSITION, CALL LIGHT WITHIN REACH, SIDE RAILS UP X3. WILL ENDORSE TO DAYSHIFT NURSE TO CONTINUE CARE.
--- NOTE | 2022-04-02 07:11 | NUR ---
MS RN OPENING NOTE PT RECEIVED IN BED, ASLEEP BUT AROUSABLE, A&O X2; CONFUSED. PT ON 2L NC WITH CURRENT O2SAT OF 100%; NO S/S OF RESP DISTRESS, NO SOB OR COUGH, NON-LABORED AND EQUAL BREATHING. . CONDOM CATH INTACT AND PATENT, DRAINING URINE THAT IS ORANGE-YELLOW IN COLOR. IV ACCESS ON RAC 20G, INTACT AND PATENT, FLUSHES EASILY WITH NO RESISTANCE; NO MEDS/FLUIDS INFUSING THROUGH IT. BED IN LOWEST POSITION, CALL LIGHT WITHIN REACH, SIDE RAILS UP X3. WILL MONITOR
[2022-04-02 08:00] VITALS: BP 93/56
[2022-04-02] MEDS: LORAZEPAM 1 MG TABLET PO SCH ×2 (09:48→21:19)
[2022-04-02] MEDS: DIVALPROEX SODIUM 125 MG CAP.SPRINK PO SCH ×2 (09:49→18:20)
[2022-04-02] MEDS: DOCUSATE SODIUM 100 MG CAPSULE PO SCH ×2 (09:49→18:20)
[2022-04-02] MEDS: risperiDONE 0.25 MG TABLET PO SCH ×2 (09:49→18:20)
[2022-04-02] MEDS: BENZTROPINE MESYLATE (1 MG) 1 MG TABLET PO SCH ×2 (09:49→18:20)
[2022-04-02 16:00] VITALS: BP 107/65
--- NOTE | 2022-04-02 19:35 | NUR ---
ANIMAL HUSBANDRY MANAGER CLOSING NOTE PT ASLEEP IN BED, ALERT/ORIENTED X1-2 AND VERBALLY RESPONSIVE OCCASIONALLY CONFUSED. ON O2 AT 2L/MIN VIA N/C AND PT TOLERATING WELL. IV ACCESS ON RAC G#20. NO C/O PAIN OR DISCOMFORT. NOT IN ACUTE DISTRESS. CONDOM CATH IN PLACE. 500 ML OUTPUT. SAFETY MEASURES IN PLACE. SIDE RAILS UP X3, BED LOCKED AND IN LOWEST POSITION. PLACED CALL LIGHT WITH IN REACH. BED ALARM ON, ALL NEEDS MET AT HIS TIME.. BED LOW LOCKED. ENDORSE TO NEXT NURSE ON DUTY FOR CONTINUITY OF CARE.
--- NOTE | 2022-04-02 19:49 | NUR ---
RN OPENING NOTES; RECEIVED PT IN BED AWAKED, ALERT/ORIENTED X1-2 AND VERBALLY RESPONSIVE OCCASIONALLY CONFUSED. ON O2 AT 2L/MIN VIA N/C TOLERATING WELL SATING 99%.NO SIGN SOB/DISTRESS NOTED,NO SIGN FOR PAIN/DISCOMFORT AT THIS TIME,IV ACCESS ON RAC G#20.SAFETY MEASURES IN PLACE. SIDE RAILS UP X3, BED LOCKED AND IN LOWEST POSITION. PLACED CALL LIGHT WITH IN REACH. BED ALARM ON, WILL CONTINUE TO MONITOR.
[2022-04-02] MEDS: CEFTRIAXONE 2 G in IV D5W 100 ML IV SCH (21:19)
[2022-04-02] MEDS: SENNOSIDES 8.6 MG TABLET PO SCH (21:19)
[2022-04-03] VITALS: BP 105/65
--- NOTE | 2022-04-03 06:19 | NUR ---
RN OPENING NOTES; PT IN BED AWAKED, ALERT/ORIENTED X1-2 AND VERBALLY RESPONSIVE OCCASIONALLY CONFUSED. ON O2 AT 2L/MIN VIA N/C TOLERATING WELL SATING 98%.NO SIGN SOB/DISTRESS NOTED,NO SIGN FOR PAIN/DISCOMFORT AT THIS TIME,DUE MEDS GIVEN ORDER,ALL NEEDS ATTENDED,IV ACCESS ON RAC G#20.SAFETY MEASURES IN PLACE. SIDE RAILS UP X3, BED LOCKED AND IN LOWEST POSITION. PLACED CALL LIGHT WITH IN REACH. BED ALARM ON, WILL ENDORSED TO NEXT SHIFT.
[2022-04-03 06:26] LABS: BASOPHILS # (AUTO) 0.1 K/uL (0.0-0.2); BASOPHILS % (AUTO) 0.5 % (0.0-2.0); EOSINOPHILS % (AUTO) 2.8 % (0.0-6.0); HEMATOCRIT 35 % (39-51); HEMOGLOBIN 11.6 g/dL (13.5-17.5); LYMPHOCYTES # (AUTO) 1.9 K/uL (0.8-4.8); LYMPHOCYTES % (AUTO) 19.4 % (20.0-44.0); MEAN CORPUSCULAR HGB CONC 33 g/dl (31.0-36.0); MEAN CORPUSCULAR VOLUME 88 fL (80-96); MONOCYTES # (AUTO) 1.7 K/uL (0.1-1.30); MONOCYTES % (AUTO) 17.4 % (2.0-12.0); NEUTROPHILS # (AUTO) 5.8 K/uL (1.8-8.9); NEUTROPHILS % (AUTO) 59.9 % (43.0-81.0); PLATELET COUNT (AUTO) 213 K/uL (150-450); RED BLOOD CELL COUNT(AUTO) 4.02 MIL/uL (4.5-6.0); WHITE BLOOD COUNT (AUTO) 9.8 K/uL (4.3-11.0)
[2022-04-03 07:16] LABS: CALCIUM, SERUM 9.9 mg/dL (8.5-10.1); CARBON DIOXIDE 30 mmol/L (21-32); CHLORIDE 101 mmol/L (98-107); CREATININE 0.8 mg/dL (0.6-1.3); GLUCOSE 141 mg/dL (74-106); MAGNESIUM 1.8 mg/dL (1.8-2.4); PHOSPHORUS 3.1 mg/dL (2.5-4.9); SODIUM SERUM 136 mmol/L (136-145); UREA NITROGEN, BLOOD 9 mg/dL (7-18)
--- NOTE | 2022-04-03 07:30 | NUR ---
MS RNNOTES; PT IN BED AWAKED, ALERT VERBALLY RESPONSIVE OCCASIONALLY CONFUSED. ON O2 AT 2L/MIN VIA N/C MO SOB NOTED AT THIS TIME ./DISTRESS NOTED,NO SIGN FOR PAIN/DISCOMFORT AT THIS TIME ,IV ACCESS ON RAC G#20.SAFETY MEASURES IN PLACE. SIDE RAILS UP X3, BED LOCKED AND IN LOWEST POSITION. PLACED CALL LIGHT WITH IN REACH.WILL CONT TO MONITOR
[2022-04-03 08:00] VITALS: BP 115/59
[2022-04-03] MEDS: BENZTROPINE MESYLATE (1 MG) 1 MG TABLET PO SCH ×2 (08:12→17:34)
[2022-04-03] MEDS: LORAZEPAM 1 MG TABLET PO SCH ×2 (08:12→21:03)
[2022-04-03] MEDS: risperiDONE 0.25 MG TABLET PO SCH ×2 (08:12→17:32)
[2022-04-03] MEDS: DOCUSATE SODIUM 100 MG CAPSULE PO SCH ×2 (08:12→17:32)
[2022-04-03] MEDS: DIVALPROEX SODIUM 125 MG CAP.SPRINK PO SCH ×2 (08:13→17:32)
[2022-04-03 09:58] LABS: BAND % (MANUAL) 2 % (0.0-5.0); EOSINOPHILS % (MANUAL) 2 % (0-4); LYMPHOCYTES % (MANUAL) 23 % (16-48); MONOCYTES % (MANUAL) 17 % (0-11.0); NEUTROPHILS % (MANUAL) 56 (42-76)
--- NOTE | 2022-04-03 10:38 | NUR ---
MS RN NOTE TURN REPOSITION ,CONDOM CATH APPLIED, KEEP CLEAN DRY, CALL LIGHT WITHIN REACH
--- NOTE | 2022-04-03 12:21 | NUR ---
RN NOTE SEEN BY IVANA RN VISUAL EDUCATION DIRECTOR WILL F\U FOR FURTHER ORDERED
[2022-04-03] MEDS ORDERED: MIDO5TAB4 PO (13:22)
[2022-04-03] MEDS ORDERED: CEFT2FRO2 IV (13:22)
--- NOTE | 2022-04-03 14:33 | NUR ---
rn note per ted coffman child care provider ok to discharge to snf called to snf spoke with morgan coffman report given , left a message to becky family about patient will be discharge Addendum: 04/03/22 at 1435 by JOHNSON MONTGOMERY RN rt ac hl will be left for further atb administration per rn from [facility] request
[2022-04-03 16:00] VITALS: BP 82/59
--- NOTE | 2022-04-03 16:30 | NUR ---
MS RN NOTE PER CARETAKER GROUNDS UNABLE TO TREANDER TO SNF TODAY DUE TO INSURANCE ISSUE
[2022-04-03 17:38] VITALS: BP 82/59
--- NOTE | 2022-04-03 17:59 | NUR ---
MS RN NOTE ROUNDS MADE ALL NEEDS ATTENDED NOT IN DISTRESS
--- NOTE | 2022-04-03 18:25 | NUR ---
MS RN NOTE FED PATENT, ABLE TO EAT WELL , PATIENT ALERT WITH CONFUSION, ON 2L NS, NO SOB NOTED AT THIS TIME, KEEP CLEAN DRY , TURN REPOSITION, WITH CONDOM CATH WITH YELLOW COLOR URINE NOTED AT THIS TIME, RT AC HL INTACT AND FLUSHED WELL , ALL NEEDS ATTENDED WILL CONT TO MONITOR CLOSELY,
[2022-04-03 20:00] VITALS: BP 109/72
[2022-04-03] MEDS: SENNOSIDES 8.6 MG TABLET PO SCH (21:03)
[2022-04-03] MEDS: ACETAMINOPHEN 325 MG TABLET PO PRN (21:06)
--- NOTE | 2022-04-03 21:06 | NUR ---
RN NOTE PT REPORTS OF HAVING HEADACHE AND IS RUBBING HEAD; PT ADMINISTERED TYLENOL 650 MG. WILL MONITOR FOR EFFECTIVENESS.
--- NOTE | 2022-04-03 23:13 | NUR ---
MS RN OPENING NOTE PT RECEIVED IN BED, AWAKE, A&O X2; CONFUSED. PT ON 2L NC WITH CURRENT O2SAT OF 96%; NO S/S OF RESP DISTRESS, NO SOB OR COUGH, NON-LABORED AND EQUAL BREATHING. VSS, WILL CONTINUE TO MONITOR NEEDED. CONDOM CATH INTACT AND PATENT, DRAINING URINE THAT IS ORANGE-YELLOW IN COLOR. IV ACCESS ON RAC 20G, INTACT AND PATENT, FLUSHES EASILY WITH NO RESISTANCE; NO MEDS/FLUIDS INFUSING THROUGH IT. BED IN LOWEST POSITION, CALL LIGHT WITHIN REACH, SIDE RAILS UP X3. WILL CONTINUE TO MONITOR THROUGHOUT THE NIGHT.
[2022-04-04] VITALS: BP 102/61
[2022-04-04 04:00] VITALS: BP 102/64
--- NOTE | 2022-04-04 06:29 | NUR ---
MS RN CLOSING NOTE PT REMAINS IN BED, AWAKE, A&O X2; CONFUSED. CONTINUES TO BE ON 2L NC WITH CURRENT O2SAT RANGING FROM 96%-100%; NO S/S OF RESP DISTRESS, NO SOB OR COUGH, NON-LABORED AND EQUAL BREATHING. VSS THROUGHOUT THE NIGHT WITH NO SIGNIFICANT CHANGES. CONDOM CATH INTACT AND PATENT, DRAINING URINE THAT IS ORANGE-YELLOW IN COLOR. IV ACCESS ON RAC 20G, INTACT AND PATENT, FLUSHES EASILY WITH NO RESISTANCE; NO MEDS/FLUIDS INFUSING THROUGH IT. ALL DUE MEDS ADMINISTERED DURING THE NIGHT. BED IN LOWEST POSITION, CALL LIGHT WITHIN REACH, SIDE RAILS UP X3. WILL ENDORSE TO DAYSHIFT NURSE TO CONTINUE CARE.
--- NOTE | 2022-04-04 07:20 | NUR ---
RN NOTE RECEIVED PATIENT IN BED RESTING ALERT ORIENTED X2 VERBALLY RESPONSIVE,ON 2L OXYGEN VIA NASAL CANNULA, O2:98% IV SITE IS ON RIGHT FOREARM INTACT PATENT,INCONTINENT BOWEL/BLADDER .SAFETY MEASURE IMPLEMENT,BED IN LOW POSTIION AND LOCKED,HEAD OF THE BED ELEVATED CONTINUE TO MONITOR.
[2022-04-04 08:00] VITALS: BP 107/70
[2022-04-04] MEDS: DIVALPROEX SODIUM 125 MG CAP.SPRINK PO SCH (08:40)
[2022-04-04] MEDS: DOCUSATE SODIUM 100 MG CAPSULE PO SCH (08:40)
[2022-04-04] MEDS: LORAZEPAM 1 MG TABLET PO SCH (08:40)
[2022-04-04] MEDS: BENZTROPINE MESYLATE (1 MG) 1 MG TABLET PO SCH (08:40)
[2022-04-04] MEDS: risperiDONE 0.25 MG TABLET PO SCH (08:40)
--- NOTE | 2022-04-04 13:20 | NUR ---
RN NOTE PATIENT WILL DISCHARGE TO SNF [facility] REPORT GIVEN TO MARANDA RN CONTINUE TO MONITOR.
--- NOTE | 2022-04-04 13:30 | NUR ---
MOLD MOVER NOTE PATIENT DISCHARGE TO [facility],ALERT ORIENTED X2 VERBALLY RESPONSIVE ON 2L OXYGEN VIA NASAL CANNULA VITAL SIGN 108/91 HR 87 O2:95% ON 2L OXYGEN,TEMP 98.8.PATIENT PICKED UP WITH [facility] WITH ACCOMPANIED BY 2 EMT,PATIENT LEFT HOSPITAL IN STABLE CONDITION BY AMBULANCE,CALLED RESPONSIBLE LIBERTARIAN LEFT MESSAGE.
== END 2022-04-04 15:30 | DRG 871 ==
LOC: ER 14:07 → TELE 16:30 → TELE1 03-27 16:23 → TELE-TD 03-27 16:48 → TELE1 03-28 17:43 → ICU 03-30 18:47 → TELE1 03-30 19:04 → MEDSG1 04-01 11:20
PROVIDERS: ADMIT Nurse Practitioner Acute Care; ATTEND Registered Nurse
DX: A41.9 Sepsis, unspecified organism (principal); G93.41 Metabolic encephalopathy; J18.0 Bronchopneumonia, unspecified organism; E44.0 Moderate protein-calorie malnutrition; E87.20 Acidosis, unspecified; C34.90 Malignant neoplasm of unspecified part of unspecified bronchus or lung; D68.9 Coagulation defect, unspecified; Z20.822 Contact with and (suspected) exposure to COVID-19; Z79.899 Other long term (current) drug therapy; F02.80 Dementia in other diseases classified elsewhere, unspecified severity, without behavioral disturbance, psychotic disturbance, mood disturbance, and anxiety; G20 Parkinson's disease; K73.9 Chronic hepatitis, unspecified; F29 Unspecified psychosis not due to a substance or known physiological condition; Z91.81 History of falling; E86.1 Hypovolemia; I10 Essential (primary) hypertension; I48.91 Unspecified atrial fibrillation; E83.52 Hypercalcemia; D64.9 Anemia, unspecified; M81.0 Age-related osteoporosis without current pathological fracture; Z96.641 Presence of right artificial hip joint; F20.9 Schizophrenia, unspecified; K43.9 Ventral hernia without obstruction or gangrene
CPT/HCPCS: 36415; 70470-TC; 70553-TC; 71045-TC; 71250-TC; 71260-TC; 80048-TC; 80053-TC; 80076-TC; 80202-TC; 82232; 82310-TC; 82378; 82607-TC; 82728-TC; 82784; 83540-TC; 83605-TC; 83735-TC; 84100-TC; 84155; 84165; 84443-TC; 84484-TC; 85025-TC; 85396; 85610-TC; 85730-TC; 86334; 86480; 87040-TC; 87081-TC; 87899; 92526; 92611-TC; 93970-TC; 94799-TC; A4349; A9575; C9803; G0378; J0282; J0696; J2060; J2543; J3370; J7030; J7040; J7050; J7060; Q9967

== ENCOUNTER 2022-05-11 00:02 | Inpatient (IN) | payer MEDICARE, OTHER ==
[~2022-05-11] VITALS: Ht 170.2 cm; Wt 69.4 kg
[2022-05-11] VITALS (14 sets, daily range): BP systolic 71–113; BP diastolic 37–72
[~2022-05-11 00:02] MED LIST: ACET-2605 PO; ACET-868 PO; AMLO-213 PO; BENZ1TAB7 PO; BISA10SU11 RC; CALC1TAB30 PO; CEFT2FRO2 IV; DIVA250T4 PO; DOCU-141 PO; LORA-259 PO; MAGN400O6 PO; MIDO5TAB4 PO; NA P133E RC; RISP0.2515 PO; SENN-261 PO; TRAM50TA2 PO
--- NOTE | 2022-05-11 00:10 | NUR ---
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 PATIENT ON NRB AT 15LPM SATURATING AT 98%. PATIENT CAME WITH IV CINDY ON RIGHT AC G18, WITH IFC F16 ATTACHED TO UROBAG, WITH PRESSURE ULCER AT SACRAL AREA. PATIENT IS AAOX0. POOR HISTORIAN. ATTACHED TO MONITOR. VITALS CHECKED.
--- NOTE | 2022-05-11 00:20 | NUR ---
COVID SWAB AND INFLUENZA SWAB DONE AND SENT TO LAB
--- NOTE | 2022-05-11 00:25 | NUR ---
URINE SPECIMEN SENT TO LAB
[2022-05-11] MEDS ORDERED: PIPERACILLIN /TAZOBACTAM 3.375 G in IV D5W 50 ML IV ONE (00:30)
[2022-05-11] MEDS ORDERED: VANCOMYCIN 1 GM in IV D5W 250 ML IV ONE (00:30)
[2022-05-11] MEDS ORDERED: ACETAMINOPHEN 650 MG/SUPP.RECT RC ONE ×2 (00:30→00:47)
--- NOTE | 2022-05-11 00:34 | NUR ---
IV CANNULA G20 INSERTED ON LEFT FA. BLOOD DRAWN SENT TO LAB. SAMPLE FOR BLOOD C/S SENT TO LAB.
[2022-05-11] MEDS ORDERED: PIPERACILLIN /TAZOBACTAM 3.375 G VIAL IV ONE (00:47)
[2022-05-11 00:51] LABS: BASOPHILS # (AUTO) 0.1 K/uL (0.0-0.2); BASOPHILS % (AUTO) 0.4 % (0.0-2.0); EOSINOPHILS % (AUTO) 1.9 % (0.0-6.0); HEMATOCRIT 37 % (39-51); LYMPHOCYTES # (AUTO) 2.6 K/uL (0.8-4.8); LYMPHOCYTES % (AUTO) 19.6 % (20.0-44.0); MEAN CORPUSCULAR HGB CONC 30 g/dl (31.0-36.0); MEAN CORPUSCULAR VOLUME 93 fL (80-96); MONOCYTES # (AUTO) 1.5 K/uL (0.1-1.30); MONOCYTES % (AUTO) 11.2 % (2.0-12.0); NEUTROPHILS # (AUTO) 8.8 K/uL (1.8-8.9); NEUTROPHILS % (AUTO) 66.9 % (43.0-81.0); PLATELET COUNT (AUTO) 224 K/uL (150-450); RED BLOOD CELL COUNT(AUTO) 4.02 MIL/uL (4.5-6.0); WHITE BLOOD COUNT (AUTO) 13.1 K/uL (4.3-11.0)
[2022-05-11] MEDS ORDERED: CT SWABBABLE VALVE TRANS SET 1 EA INFUS.SET MC ONE (00:52)
[2022-05-11] MEDS ORDERED: IOHEXOL-350 100 ML VIAL IV ONE (00:52)
[2022-05-11] MEDS ORDERED: IV NS 0.9% 250 ML IV ONE (00:53)
[2022-05-11 00:59] LABS: CALCIUM, SERUM 10.7 mg/dL (8.5-10.1); CARBON DIOXIDE 28 mmol/L (21-32); CHLORIDE 123 mmol/L (98-107); CREATININE 1.4 mg/dL (0.6-1.3); GLUCOSE 131 mg/dL (74-106); POTASSIUM 4.5 mmol/L (3.5-5.1); UREA NITROGEN, BLOOD 32 mg/dL (7-18)
[2022-05-11 01:02] LABS: BILIRUBIN,URINE NEGATIVE (NEGATIVE); COLOR,URINE DARK YELLOW (YELLOW); LEUKOCYTE ESTERASE ,URINE 3+ (NEGATIVE); NITRITE, URINE POSITIVE (NEGATIVE); PH,URINE 5.5 (5.0-8.0); PROTEIN,URINE TRACE mg/dl (NEGATIVE); UGLUCOSE NEGATIVE (NEGATIVE); UROBILINOGEN,URINE >=8.0 EU/dL (0.2)
--- NOTE | 2022-05-11 01:07 | NUR ---
RECEIVED CALL FROM POPPY BOWDEN. SODIUM IS 156. RELAYED TO DR GARDINER
[2022-05-11 01:12] LABS: ALANINE AMINOTRANSFERASE 14 U/L (12-78); ALKALINE PHOSPHATASE 126 U/L (46-116); ASPARTATE AMINOTRANSFERASE 35 U/L (15-37); BACTERIA,URINE Many /HPF (None Seen); BILIRUBIN,DIRECT 0.7 mg/dL (0.0-0.2); WBC,URINE 21-50 /HPF (0-3)
[2022-05-11 01:13] LABS: ALBUMIN 1.3 g/dL (3.4-5.0); SODIUM SERUM 156 mmol/L (136-145); SQUAMOUS EPITHELIAL CELL,UR Few /HPF (None Seen)
[2022-05-11] MEDS ORDERED: VANCOMYCIN 1 GM VIAL ONE (01:21)
--- NOTE | 2022-05-11 01:30 | NUR ---
VS HR 109, BP 80/47mmHg, SATS [address] GARDINER MADE AWARE. 1L NS BOLUS STARTED.
[2022-05-11] MEDS ORDERED: IV NS 0.9% 1,000 ML BAG IV ONE (02:00)
[2022-05-11] MEDS ORDERED: HYDROCODONE/APAP 5/325MG TABLET PO PRN (03:30)
[2022-05-11] MEDS ORDERED: ONDANSETRON HCL/PF 4 MG/2 ML VIAL IVP PRN (03:30)
[2022-05-11] MEDS ORDERED: MAGNESIUM HYDROXIDE 30 ML UDC PO PRN ×2 (03:30→19:00)
[2022-05-11] MEDS ORDERED: LORAZEPAM 0.5 MG TABLET PO PRN (03:30)
[2022-05-11] MEDS ORDERED: Z GUARD REMEDY 4 OZ OINT TP PRN (03:30)
[2022-05-11] MEDS ORDERED: MAG HYDROX/AL HYDROX/SIMETH 30 ML UDC PO PRN (03:30)
[2022-05-11] MEDS ORDERED: ACETAMINOPHEN 325 MG TABLET PO PRN ×2 (03:30→19:00)
[2022-05-11] MEDS ORDERED: TEMAZEPAM 15 MG CAPSULE PO PRN (03:30)
[2022-05-11] MEDS ORDERED: IV 1/2NS 1000 ML 1,000 ML IV PRN (03:30)
[2022-05-11] MEDS ORDERED: MORPHINE SULFATE INJ 2 MG/ML DISP.SYRIN IV PRN (03:30)
[2022-05-11] MEDS ORDERED: PIPERACILLIN /TAZOBACTAM 3.375 G in IV D5W 50 ML IV SCH (05:00)
--- NOTE | 2022-05-11 07:15 | NUR ---
RECEIVED PT FROM ANTHONY SCOTT PT OPEN HIS EYE NOT FALLOW COMMAND WITH FIO2 100% NRM RESTING AT HIS TIME
--- NOTE | 2022-05-11 07:19 | NUR ---
REPORT GIVEN TO TYLER ESPOSITO
[2022-05-11] MEDS ORDERED: ASCO500C17 PO (08:09)
[2022-05-11] MEDS ORDERED: AMIN887L7 PO (08:10)
[2022-05-11] MEDS ORDERED: ZINC220C6 PO (08:10)
[2022-05-11] MEDS ORDERED: FERR325T23 PO (08:10)
[2022-05-11] MEDS ORDERED: HYDR-3972 PO (08:10)
[2022-05-11] MEDS ORDERED: MULT-439 PO (08:10)
--- NOTE | 2022-05-11 08:15 | NUR ---
WATING FOR TELMETRY BED
--- NOTE | 2022-05-11 08:51 | NUR ---
GOT BED 104
[2022-05-11] MEDS ORDERED: PANTOPRAZOLE 40 MG TABLET.DR PO ONE (08:52)
[2022-05-11] MEDS: PANTOPRAZOLE 40 MG TABLET.DR PO SCH (08:56)
--- NOTE | 2022-05-11 08:56 | NUR ---
PT UNABLE TO SWALLOW HOLD PROTONEX NOT GIVEN NOW
--- NOTE | 2022-05-11 09:30 | NUR ---
HAND OFF SERGEY SCOTT TO ERASMO 104 VIA TRAVIS WITH 100 % NRM O2 SAT 95 %
[2022-05-11] MEDS: PIPERACILLIN /TAZOBACTAM 3.375 G in IV D5W 100 ML IV SCH ×2 (10:28→17:36)
--- NOTE | 2022-05-11 10:35 | NUR ---
RN NOTE WOUND CONSULT ORDERED, PEARL AND I TRIED TO CHECK PATIENT'S BACK SACRAL AREA, BUT PATIENT IS COMBATIVE. PEARL THE WOUND CARE NURSE SAID SHE WILL ASK ADEN
--- NOTE | 2022-05-11 10:38 | NUR ---
WOUND CARE CONSULT: LIMITED ASSESSMENT DUE TO PT COMBATIVE. PER RN, THERE IS PACKING IN SACRAL WOUND BUT PT ADAMANTLY RESISTED TURNING AND SHOUTED NO. LEFT LOWER LEG NOTED TO HAVE 4+ PITTING EDEMA WITH RAISED AREA TO ANTERIOR LEFT LOWER LEG AND DISCOLORATION (DEEP TISSUE INJURIES TO LATERAL KNEE AND LOWER LEG, PRESENT ON ADMISSION). RECOMMENDATIONS MADE FOR SKIN PROTECTION. DISCUSSED WITH NURSING STAFF. PT IS ON STEUBEN ISOFLEX LOW AIRLOSS BED. DR MCCORMACK NOTIFIED OF SURGICAL CONSULT REQUEST. IN AGREEMENT WITH PLAN OF CARE.
[2022-05-11] MEDS: VANCOMYCIN HCL 0.75 GM in IV D5W 250 ML IV SCH (13:39)
--- NOTE | 2022-05-11 14:31 | NUR ---
CLINICAL RESEARCH MANAGER NOTE PER SUE MILES WOUND CARE ORDERED WITH [facility] WILL F\U
[2022-05-11] MEDS: ENOXAPARIN SODIUM 40 MG/0.4 ML DISP.SYRIN SQ SCH (15:26)
--- NOTE | 2022-05-11 16:30 | NUR ---
RN NOTE I CALLED THE DAUGHTER ELDA TO GET THE CONSENT FOR SACRAL, SHE DID NOT RESPOND I LEFT HER A VOICE MESSAGE TO CALL US BACK.
--- NOTE | 2022-05-11 18:50 | NUR ---
RN CLOSING NOTE PATIENT ALERT ORIENTED X1 CAME FROM [facility] TO ER DUR TO RESPIRATORY FAILURE AND SEPSIS. PATIENT IS NPO, UNABLE TO SWALLOW. SWALLOW EVAL ORDERED ALREADY. DOCTOR SIDDHARTH INFORMED. I CALLED PHARMACY AND INFORMED THEM THEY SAID ALL HIS MEDICATION WILL BE IV. PATIENT HAS LAC G #18 IS ON NS 75 ML/HR RUNNING, INTACT AND FLUSHING. PATIENT CAME WITH SLADE CATHETER DRAINING МАРИЯ COLOR URINE 950 OUTPUT IN MY SHIFT. PATIENT HAS EDEMA +2 ON BOTH LEFT, BLISTER ON LEFT ANKLE DUE TO EDEMA. STAGE 3 WOUND ON SACRAL SUE ORDERED [facility] PACKING WOUND CARE ORDER. I CALLED DAUGHTER ELDA TO GET THE CONSENT FOR WOUND DEBRIDEMENT, BUT DID NOT RESPOND AND I LEFT HER A VOICE MESSAGE. AND ENDORSED TO THE MEAT SERVICE TEAM MEMBER NURSE TO FOLLOW UP. BED AT LOWEST POSITION, CALL LIGHT WITHIN REACH. WILL ENDORSE THE PATIENT TO THE MEAT SERVICE TEAM MEMBER NURSE FOR IGNACIO.
[2022-05-11] MEDS ORDERED: BISACODYL SUPP (10 MG) 10 MG/SUPP.RECT SUPP.RECT RC PRN (19:00)
[2022-05-11] MEDS ORDERED: TRAMADOL HCL 50 MG TABLET PO PRN (19:00)
[2022-05-11] MEDS ORDERED: NA PHOS,M-B/NA PHOS,DI-BA 1 EA ENEMA RC PRN (19:00)
[2022-05-11] MEDS ORDERED: MIDODRINE HCL (5MG) 5 MG TABLET PO PRN (19:00)
[2022-05-11] MEDS ORDERED: ACETAMINOPHEN ES 500 MG TABLET PO PRN (19:00)
--- NOTE | 2022-05-11 19:15 | NUR ---
Radioisotope Production Operator notes Received pts and report from Josep Eastman Pts on 15 liters non rebreather mask ,0PEN EYES tachycardic HR 140S, SOB desaturation 80s v/s BP 116/77 HR 140s RR40S TEMP 98 O2 SAT 80s HOB ELEVATED . 19 :15HRS SPOKE TO CE BENJAMIN ,RELAYED PTS CONDITION WITH ORDER STAT ABG , RT AT BEDSIDE, WAITING FOR RESULT. AT 1930 , CE BENJAMIN CAME SEEN PTS RELAYED ABG RESULT WITH ORDER TO TRANSFER PTS TO ICU FOR RESCUE BIPAP.PTS IS FULL CODE. PLACE A CALL TO ELDA DAUGHTER PHONE KEEP RINGING LEFT MESSAGE .RT PUT PTS TO BIPAP BUT BIPAP DOES NOT HELP PTS STILL TACHYPNEIC.CE BENJAMIN MADE AWARE , HE SAID TRANSFER PTS TO ICU FOR INTUBATION .RN CEMENT BLOCK MAKER MADE AWARE , PTS WILL GO TO ROOM 257 , ICU CHARGE NURSE ED MADE AWARE , REPORT WILL BE GIVEN TO URIEL AT BEDSIDE.
--- NOTE | 2022-05-11 19:37 | NUR ---
RT NOTE LATE ENTRY Pt rec'd on NRB mask at 15LPM. STAT ABG taken and critical Results noted and given to Nilesh ENCINAS. Pt placed on BIPAP on noted settings per Nilesh ENCINAS orders. Bipap plugged into red outlet. Alarms are set and audible. Ambu bag at bedside. Addendum: 05/11/22 at 2202 by MARIA R MEJIA RT Amended: Links added.
[2022-05-11 19:42] LABS: ABG BASE EXCESS -6.5 mmol/L; ABG PCO2 28.7 mmHg (35.0-45.0); ABG PH 7.392 (7.350-7.450); ABG PO2 42.4 mmHg (75.0-100.0); AaDO2 641.9 mmHg; COHb 0.5 % (0.5-1.5); MetHb 0.3 % (0.0-1.5); O2Hb 74.4 % (94.0-97.0); SITE, ABG Right Radial; VENT MODE, BG NRB 100%
[2022-05-11] MEDS ORDERED: LORAZEPAM INJ 2 MG/ML VIAL IV PRN (20:00)
--- NOTE | 2022-05-11 20:00 | NUR ---
telephonic case manager notes Transfer Pts to ICU room 257 on 15 liters non rebreather mask report given to TYLER Ann .
--- NOTE | 2022-05-11 20:10 | NUR ---
RN NOTES RECEIVED PATIENT FROM JOHN. PATIENT ON BIPAP AT PRESCRIBED SETTINGS. PATIENT TACHYCARDIC AND LABORED BREATHING SATING 89% RT AT BEDSIDE. CONNECTED TO NIGHT TIME NANNY. IV LINE IS NOT WORKING. SLADE CATHETER PATENT DRAINING МАРИЯ COLORED URINE OUTPUT. HOB ELEVATED. WILL CLOSELY MONITOR THE PATIENT
--- NOTE | 2022-05-11 20:30 | NUR ---
RN NOTES REINSERTED IV ACCESS AT R FOREARM #20, R HAND # 20 PATENT FLUSHES WELL.
--- NOTE | 2022-05-11 20:50 | NUR ---
RN NOTES PATIENT INTUBATED BY DR MANUEL. RT AT BEDSIDE, CN AT BEDSIDE. HOOKED AT MECHANICAL VENTILATOR WITH PRESCRIBED SETTINGS. DR ALEJANDRO ORTA CHECKED PATIENT WITH ORDERS NOTED. WILL CLOSELY MONITOR THE PATIENT
[2022-05-11] MEDS ORDERED: NOREPINEPHRINE 4 MG/4 ML AMPUL IV ONE (20:58)
[2022-05-11] MEDS ORDERED: LORAZEPAM 0.5 MG TABLET PO SCH (21:00)
[2022-05-11] MEDS ORDERED: PROPOFOL 100 ML IV PRN (21:00)
[2022-05-11] MEDS ORDERED: NOREPINEPHRINE 8 MG in IV NS 0.9% 242 ML IV PRN (21:00)
--- NOTE | 2022-05-11 21:01 | NUR ---
RT NOTE LATE ENTRY Patient on Bipap and unable to maintain adequate O2 saturation. Pt RR > 40 breaths per min. Pt transferred to ICU 257. Pt orally intubated via ETT sz #7.0 Secured at 22CM at the lipline. Color change noted via CO2 detector, clear bilateral breath sounds heard on auscultation. Waiting on chest x ray results. Pt placed on [facility] vent on AC mode settings per MD orders. Vent plugged into red outlet. Alarms are set and audible. Ambu bag at bedside. ABG to be taken within 1 hour. Addendum: 05/11/22 at 2154 by MARIA R MEJIA RT Amended: Links added.
[2022-05-11] MEDS ORDERED: SENNOSIDES 8.6 MG TABLET PO SCH (22:00)
--- NOTE | 2022-05-11 22:10 | NUR ---
RN NOTES ABG RESULT RELAYED ABG RESULT TO DR ORTA WITH ORDER NOTED. REPEAT CHEST XRAY ORDERED.
[2022-05-11] MEDS ORDERED: PHENYLEPHRINE 10 MG/ML VIAL ONE (22:13)
[2022-05-11 22:20] LABS: ABG BASE EXCESS -14.8 mmol/L; ABG OXYGEN SATURATION 87.1 % (92.0-98.5); ABG PCO2 50.7 mmHg (35.0-45.0); ABG PH 7.089 (7.350-7.450); ABG PO2 71.7 mmHg (75.0-100.0); AaDO2 590.6 mmHg; COHb 0.6 % (0.5-1.5); MetHb 0.3 % (0.0-1.5); O2Hb 86.3 % (94.0-97.0); PEEP,BG 5 cm H2O; SITE, ABG Right Radial; VT, ABG 500 mL
--- NOTE | 2022-05-11 22:20 | NUR ---
RN NOTES PATIENT STARTED ALEIDA @ 0.5 MCG/KG/MIN. WILL CONTINUE TO MONITOR THE PATIENT
[2022-05-11] MEDS: PHENYLEPHRINE 100 MG in IV NS 0.9% 240 ML IV PRN (22:21)
--- NOTE | 2022-05-11 22:44 | NUR ---
VENT SETTINGS CHANGED VT 550, RATE 32. CHARGE NURSE ED NOTIFIED
[2022-05-11] MEDS ORDERED: Sodium Bicarbonate 100 MEQ in IV NS 0.9% 1,000 ML IV PRN (23:00)
[2022-05-11] MEDS ORDERED: SODIUM BICARBONATE SYR 50 MEQ/50 ML DISP.SYRIN IV ONE (23:00)
[2022-05-11] MEDS ORDERED: VASOPRESSIN INJ 40 UNIT in IV NS 0.9% 38 ML IV PRN (23:00)
[2022-05-11] MEDS ORDERED: SODIUM BICARBONATE SYR 50 MEQ/50 ML DISP.SYRIN ONE (23:04)
[2022-05-11] MEDS ORDERED: VASOPRESSIN INJ 20 UNIT/ML VIAL ONE (23:05)
[2022-05-12] VITALS (52 sets, daily range): BP systolic 52–116; BP diastolic 28–69
[2022-05-12 00:09] LABS: BASOPHILS % (AUTO) 0.1 % (0.0-2.0); EOSINOPHILS % (AUTO) 0.1 % (0.0-6.0); HEMATOCRIT 41 % (39-51); HEMOGLOBIN 11.7 g/dL (13.5-17.5); LYMPHOCYTES # (AUTO) 0.7 K/uL (0.8-4.8); LYMPHOCYTES % (AUTO) 5.4 % (20.0-44.0); MEAN CORPUSCULAR HGB CONC 28 g/dl (31.0-36.0); MEAN CORPUSCULAR VOLUME 97 fL (80-96); MONOCYTES # (AUTO) 0.6 K/uL (0.1-1.30); MONOCYTES % (AUTO) 4.9 % (2.0-12.0); NEUTROPHILS # (AUTO) 11.7 K/uL (1.8-8.9); NEUTROPHILS % (AUTO) 89.5 % (43.0-81.0); PLATELET COUNT (AUTO) 292 K/uL (150-450); RED BLOOD CELL COUNT(AUTO) 4.29 MIL/uL (4.5-6.0); WHITE BLOOD COUNT (AUTO) 13.1 K/uL (4.3-11.0)
[2022-05-12 00:28] LABS: ALANINE AMINOTRANSFERASE 6 U/L (12-78); ALKALINE PHOSPHATASE 75 U/L (46-116); ASPARTATE AMINOTRANSFERASE 26 U/L (15-37); BILIRUBIN,TOTAL 0.8 mg/dL (0.2-1.0); CALCIUM, SERUM 8.1 mg/dL (8.5-10.1); CARBON DIOXIDE 33 mmol/L (21-32); CREATININE 1.5 mg/dL (0.6-1.3); POTASSIUM 2.9 mmol/L (3.5-5.1); UREA NITROGEN, BLOOD 27 mg/dL (7-18)
[2022-05-12 00:34] LABS: CHLORIDE 132 mmol/L (98-107); SODIUM SERUM 172 mmol/L (136-145)
[2022-05-12 00:36] LABS: ALBUMIN 0.7 g/dL (3.4-5.0); GLUCOSE 27 mg/dL (74-106)
[2022-05-12] MEDS ORDERED: DEXTROSE 50%-WATER 50 ML DISP.SYRIN ONE (00:40)
[2022-05-12] MEDS ORDERED: DEXTROSE 50%-WATER 50 ML DISP.SYRIN IVP ONE (01:00)
--- NOTE | 2022-05-12 01:00 | NUR ---
RN NOTES CRITICAL LAB RESULT NA 172, CHLORIDE 132, GLUCOSE 27. DR ORTA INFORMED WITH ORDER TO GIVE DEXTROSE THEN REPEAT BS IN 30 MINUTES, CHANGE IVF FLUIDS TO D5W WITH 100 MEQ SODIUM BICARB
[2022-05-12] MEDS ORDERED: SODIUM BICARBONATE SYR 50 MEQ/50 ML DISP.SYRIN ONE ×2 (01:13→01:14)
[2022-05-12] MEDS: VANCOMYCIN HCL 0.75 GM in IV D5W 250 ML IV SCH (01:28)
[2022-05-12] MEDS ORDERED: Sodium Bicarbonate 100 MEQ in IV D5W 1,000 ML IV PRN (01:30)
--- NOTE | 2022-05-12 01:39 | NUR ---
RN NOTES BS CHECKED 99MG/DL. WILL CONTINUE TO MONITOR THE PATIENT
[2022-05-12] MEDS: PIPERACILLIN /TAZOBACTAM 3.375 G in IV D5W 100 ML IV SCH ×2 (02:12→10:06)
[2022-05-12] MEDS: POTASSIUM CL. PREMIX PERIPHER. 50 ML IV SCH ×4 (03:05→05:50)
[2022-05-12] MEDS ORDERED: NOREPINEPHRINE 4 MG/4 ML AMPUL IV ONE (03:26)
[2022-05-12] MEDS ORDERED: NOREPINEPHRINE 32 MG in IV NS 0.9% 218 ML IV PRN (03:30)
[2022-05-12] MEDS ORDERED: PHENYLEPHRINE 10 MG/ML VIAL ONE (04:40)
[2022-05-12 05:00] LABS: ABG BASE EXCESS -12.6 mmol/L; ABG OXYGEN SATURATION 82.5 % (92.0-98.5); ABG PCO2 35.5 mmHg (35.0-45.0); ABG PH 7.219 (7.350-7.450); ABG PO2 52.5 mmHg (75.0-100.0); COHb 0.7 % (0.5-1.5); MetHb 0.2 % (0.0-1.5); O2Hb 81.8 % (94.0-97.0); PEEP,BG 5 cm H2O; SITE, ABG Right Radial; VT, ABG 550 mL
[2022-05-12 05:27] LABS: BASOPHILS % (AUTO) 0.1 % (0.0-2.0); EOSINOPHILS % (AUTO) 0.3 % (0.0-6.0); HEMATOCRIT 39 % (39-51); HEMOGLOBIN 11.7 g/dL (13.5-17.5); LYMPHOCYTES # (AUTO) 1.2 K/uL (0.8-4.8); LYMPHOCYTES % (AUTO) 5.4 % (20.0-44.0); MEAN CORPUSCULAR HGB CONC 30 g/dl (31.0-36.0); MEAN CORPUSCULAR VOLUME 94 fL (80-96); MONOCYTES # (AUTO) 0.7 K/uL (0.1-1.30); MONOCYTES % (AUTO) 3.1 % (2.0-12.0); NEUTROPHILS % (AUTO) 91.1 % (43.0-81.0); PLATELET COUNT (AUTO) 283 K/uL (150-450); RED BLOOD CELL COUNT(AUTO) 4.19 MIL/uL (4.5-6.0)
[2022-05-12 05:40] LABS: CALCIUM, SERUM 10.9 mg/dL (8.5-10.1); CARBON DIOXIDE 22 mmol/L (21-32); CHLORIDE 122 mmol/L (98-107); CREATININE 2.3 mg/dL (0.6-1.3); GLUCOSE 83 mg/dL (74-106); MAGNESIUM 2.3 mg/dL (1.8-2.4); PHOSPHORUS 6.6 mg/dL (2.5-4.9); POTASSIUM 3.8 mmol/L (3.5-5.1); UREA NITROGEN, BLOOD 40 mg/dL (7-18)
[2022-05-12 05:50] LABS: SODIUM SERUM 163 mmol/L (136-145)
[2022-05-12 06:23] LABS: CHOLESTEROL 62 mg/dL (<200); HDL CHOLESTEROL 11 mg/dL (40-60); LDL 31 mg/dL (0-99); THYROID STIMULATING HORMONE 6.346 uIU/mL (0.358-3.74); TRIGLYCERIDES 136 mg/dL (30-150)
[2022-05-12] MEDS: PHENYLEPHRINE 100 MG in IV NS 0.9% 240 ML IV PRN (06:30)
--- NOTE | 2022-05-12 07:08 | NUR ---
RN NOTES PATIENT ON VENT WITH PRESCRIBED SETTINGS. IV ACCESS PATENT RUNNING ALEIDA@ 3MCG/KG/MIN, LEVO @ 1MCG/KG/MIN, VASO 0.03 UNITS/MIN. SLADE PATENT FLUSHES WELL. OGT IN PLACE. ALL SAFETY MEASURES IN PLACE. HOB ELEVATED. WILL ENDORSED TO MORNING SHIFT FOR IGNACIO
[2022-05-12] MEDS ORDERED: PANTOPRAZOLE 40 MG TABLET.DR PO SCH (07:30)
[2022-05-12] MEDS ORDERED: PANTOPRAZOLE 40 MG VIAL IV SCH (07:30)
--- NOTE | 2022-05-12 07:30 | NUR ---
OPENING NOTE: REPORT RECEIVED FROM URIEL SCOTT. LABS AND ORDERS REVIEWED DURING REPORT. PER REPORT PATIENT WAS INTUBATED LAST NIGHT AND BROUGHT TO ICU. PT IS CURRENTLY A MAX DOSE RATE ON LEVOPHED, PHENELEPHRINE AND VASOPRESSIN GTT. PT IS UNRESPONSIVE. PUPILS ARE FIXED AND DILATED, NO COUGH, GAG OR REACTION TO PAIN NOTED. PT'S BREATHING IS LABORED. PT CHECKED ON FREQUENTLY BY NURSING STAFF.
[2022-05-12] MEDS ORDERED: PHARMACY TO CHANGE PO MEDS TO GT/NG XX PRN (08:30)
[2022-05-12] MEDS ORDERED: LORAZEPAM 0.5 MG TABLET GT SCH (08:36)
[2022-05-12] MEDS ORDERED: LORAZEPAM 0.5 MG TABLET GT PRN (08:36)
[2022-05-12] MEDS ORDERED: MAG HYDROX/AL HYDROX/SIMETH 30 ML UDC GT PRN (08:38)
[2022-05-12] MEDS ORDERED: MAGNESIUM HYDROXIDE 30 ML UDC GT PRN (08:39)
[2022-05-12] MEDS ORDERED: HYDROCODONE/APAP 5/325MG TABLET GT PRN (08:39)
[2022-05-12] MEDS ORDERED: MIDODRINE HCL (5MG) 5 MG TABLET GT PRN (08:41)
[2022-05-12] MEDS ORDERED: TEMAZEPAM 15 MG CAPSULE GT PRN (08:42)
[2022-05-12] MEDS ORDERED: SENNOSIDES 8.6 MG TABLET GT SCH (08:48)
[2022-05-12] MEDS ORDERED: PROSOURCE / PROSTAT (PYXIS) 30 ML UDC PO SCH (09:00)
[2022-05-12] MEDS ORDERED: MULTIVIT W/MINERALS 1 TAB TABLET PO SCH (09:00)
[2022-05-12] MEDS ORDERED: FERROUS SULFATE (325 MG) 325 MG/TAB TABLET PO SCH (09:00)
[2022-05-12] MEDS ORDERED: CALCIUM CARB 600MG /VIT D 1 EACH TABLET PO SCH (09:00)
[2022-05-12] MEDS ORDERED: ASCORBIC ACID 500 MG TABLET PO SCH (09:00)
[2022-05-12] MEDS ORDERED: PROSOURCE / PROSTAT (PYXIS) 30 ML UDC GT SCH (09:00)
[2022-05-12] MEDS ORDERED: AMLODIPINE BESYLATE 10 MG TABLET PO SCH (09:00)
[2022-05-12] MEDS ORDERED: BENZTROPINE MESYLATE (1 MG) 1 MG TABLET GT SCH (09:00)
[2022-05-12] MEDS ORDERED: AMLODIPINE BESYLATE 10 MG TABLET GT SCH (09:00)
[2022-05-12] MEDS ORDERED: FERROUS SULFATE (325 MG) 325 MG/TAB TABLET GT SCH (09:00)
[2022-05-12] MEDS ORDERED: BENZTROPINE MESYLATE (1 MG) 1 MG TABLET PO SCH (09:00)
[2022-05-12] MEDS ORDERED: DOCUSATE SODIUM 100 MG CAPSULE PO SCH (09:00)
[2022-05-12] MEDS ORDERED: HYDROCODONE/APAP 5/325MG TABLET PO SCH (09:00)
[2022-05-12] MEDS ORDERED: DIVALPROEX SODIUM 250 MG TABLET.DR PO SCH (09:00)
[2022-05-12] MEDS ORDERED: HYDROCODONE/APAP 5/325MG TABLET GT SCH (09:00)
[2022-05-12] MEDS ORDERED: risperiDONE 0.25 MG TABLET PO SCH (09:00)
[2022-05-12] MEDS ORDERED: risperiDONE LIQUID 1 MG/ML ML GT SCH (09:00)
[2022-05-12] MEDS ORDERED: DAKINS QUARTER STRENGTH (0.125%) 480 ML BOTTLE TOP SCH (09:00)
[2022-05-12] MEDS ORDERED: CALCIUM CARB 600MG /VIT D 1 EACH TABLET GT SCH (09:00)
[2022-05-12] MEDS ORDERED: DOCUSATE SODIUM LIQ 100 MG/10 ML UDC GT SCH (09:00)
[2022-05-12] MEDS ORDERED: ZINC SULFATE 220 MG CAPSULE PO SCH (09:00)
[2022-05-12] MEDS ORDERED: ZINC SULFATE 220 MG CAPSULE GT SCH (09:00)
[2022-05-12] MEDS: ENOXAPARIN SODIUM 40 MG/0.4 ML DISP.SYRIN SQ SCH (10:05)
--- NOTE | 2022-05-12 10:45 | NUR ---
MESSAGE LEFT FOR PT'S DAUGHTER ELDA, NO RETURN CALL AT THIS TIME
[2022-05-12] MEDS ORDERED: Sodium Bicarbonate 100 MEQ in IV D5W 1,000 ML IV SCH (11:30)
[2022-05-12] MEDS ORDERED: VALPROIC ACID 250 MG/5 ML UDC GT SCH (12:00)
[2022-05-12] MEDS ORDERED: SUCCINYLCHOLINE CHLORIDE 20 MG/ML VIAL IV ONE (12:35)
[2022-05-12] MEDS ORDERED: ETOMIDATE 2 MG/ML VIAL IV ONE (12:35)
--- NOTE | 2022-05-12 13:27 | NUR ---
PT WAS ASYSTOLE AT 1216, CODE SESAR CALLED. SEE CODE BLUE DOCUMENTATION. PT WAS PRONOUNCED AT [address] ROCK DURING CODE BLUE. PRIOR TO CODE BLUE AND DURING CODE BLUE ATTEMPTS TO GET A HOLD OF PATIENTS DAUGHTER ELDA [phone] WERE FUTILE, MESSAGES WERE LEFT ON VOICEMAIL.
[2022-05-12 14:44] LABS: BAND % (MANUAL) 48 % (0.0-5.0); EOSINOPHILS % (MANUAL) 1 % (0-4); LYMPHOCYTES % (MANUAL) 7 % (16-48); METAMYELOCYTES % 5 % (0-0); MONOCYTES % (MANUAL) 3 % (0-11.0); MYELOCYTES % 3 % (0-0); NEUTROPHILS % (MANUAL) 32 (42-76); REACTIVE LYMPHOCYTES 1 % (0-0)
[2022-05-12] MEDS ORDERED: EPINEPHRINE (1:10,000) SYRINGE 1 MG/10 ML DISP.SYRIN IVP ONE (16:53)
== END 2022-05-12 12:30 | DRG 720 ==
LOC: ER 00:10 → TELE1 09:12 → ICU 20:01
PROVIDERS: ADMIT Student in an Organized Health Care Education/Training Program; ATTEND Student in an Organized Health Care Education/Training Program
PROC: 5A1935Z Respiratory Ventilation, Less than 24 Consecutive Hours (ICD-10-PCS; principal; 2022-05-11)
PROC: 0BH17EZ Insertion of Endotracheal Airway into Trachea, Via Natural or Artificial Opening (ICD-10-PCS; 2022-05-11)
PROC: 05HC33Z Insertion of Infusion Device into Left Basilic Vein, Percutaneous Approach (ICD-10-PCS; 2022-05-11)
PROC: 5A12012 Performance of Cardiac Output, Single, Manual (ICD-10-PCS; 2022-05-12)
DX: A41.9 Sepsis, unspecified organism (principal); J96.01 Acute respiratory failure with hypoxia; N17.0 Acute kidney failure with tubular necrosis; R65.21 Severe sepsis with septic shock; J15.6 Pneumonia due to other Gram-negative bacteria; E43 Unspecified severe protein-calorie malnutrition; L89.154 Pressure ulcer of sacral region, stage 4; E87.0 Hyperosmolality and hypernatremia; D63.8 Anemia in other chronic diseases classified elsewhere; E88.09 Other disorders of plasma-protein metabolism, not elsewhere classified; E86.1 Hypovolemia; N39.0 Urinary tract infection, site not specified; B96.89 Other specified bacterial agents as the cause of diseases classified elsewhere; E87.6 Hypokalemia; F20.9 Schizophrenia, unspecified; F31.9 Bipolar disorder, unspecified; G20 Parkinson's disease; F02.80 Dementia in other diseases classified elsewhere, unspecified severity, without behavioral disturbance, psychotic disturbance, mood disturbance, and anxiety; I10 Essential (primary) hypertension; I48.20 Chronic atrial fibrillation, unspecified; K73.9 Chronic hepatitis, unspecified; M81.0 Age-related osteoporosis without current pathological fracture; Z91.81 History of falling; K21.9 Gastro-esophageal reflux disease without esophagitis; R29.6 Repeated falls; Z79.899 Other long term (current) drug therapy; C34.90 Malignant neoplasm of unspecified part of unspecified bronchus or lung
CPT/HCPCS: 36415; 36600; 71045-TC; 80048-TC; 80053-TC; 80061-TC; 80076-TC; 81001; 82803-TC; 82962-TC; 83605-TC; 83735-TC; 83880; 84100-TC; 84443-TC; 84484-TC; 85025-TC; 85730-TC; 87040-TC; 87081-TC; 87086-TC; 94002-TC; 94003-TC; 94660; A6403; C9113; C9803; G0378; J0171; J0330; J1650; J2370; J2543; J3370; J3480; J3490; J7030; J7050; J7060; J7070; Q9967